=== PATIENT | female | born 1960 | race African-American/Black ===

== ENCOUNTER 2021-05-12 16:37 | Emergency (ER) | payer SELFPAY ==
[2021-05-12] MEDS ORDERED: HYDROcodone/Acetaminophen 7.5/325 mg Tablet ONE (17:45)
== END 2021-05-12 17:56 | disposition home or self-care (01) ==
LOC: ERS 16:37
DX: B02.9 Zoster without complications (principal)
CPT/HCPCS: 99283

== ENCOUNTER 2021-07-03 23:12 | Inpatient (IN) | payer SELFPAY ==
[2021-07-04] MEDS ORDERED: cefTRIAXone\\ROCEPHIN 2 GM VIAL ONE (00:05)
[2021-07-04] MEDS ORDERED: Dexamethasone 10 MG/ML VIAL ONE (00:11)
[2021-07-04 00:15] LABS: ALT (SGPT) 75 U/L (8-55); AST (SGOT) 153 U/L (5-34); Albumin 3.6 g/dL (3.4-4.8); Alkaline Phosphatase 81 U/L (40-110); Anion Gap 24 mmol/L (10-20); BUN (Urea Nitrogen) 28 mg/dL (9.8-20.1); Bilirubin, Total 0.5 mg/dL (0.2-1.2); Calc. Creatinine Clearance 0 mL/min (70-130); Calcium 8.7 mg/dL (7.8-10.44); Carbon Dioxide 16 mmol/L (23-31); Chloride 103 mmol/L (98-107); Globulin 4.3 g/dL (2.4-3.5); Glucose 163 mg/dL (80-115); Potassium 5.2 mmol/L (3.5-5.1); Protein, Total 7.9 g/dL (5.8-8.1); Sodium 138 mmol/L (136-145)
[2021-07-04 00:44] LABS: CKMB 8.4 ng/mL (0-6.6)
[2021-07-04 00:45] LABS: #Lymphocytes 1.2 thou/uL (1.20-3.40); #Neutrophils 9.3 thou/uL (1.40-6.50); %Basophils 0.2 % (0.0-1.0); %Eosinophils 0.2 % (0.0-10.0); %Lymphocytes 10.6 % (21.0-51.0); %Monocytes 8.9 % (0.0-10.0); %Neutrophils 80.1 % (42.0-75.0); Hemoglobin 14.9 g/dL (12.0-16.0); Mean Corpuscular HGB CONC 33.9 g/dL (32.0-36.0); Mean Corpuscular Hemoglobin 29.1 pg (27.0-31.0); Mean Corpuscular Volume 85.6 fL (78.0-98.0); Mean Platelet Volume 10.8 fL (7.4-10.4); Platelet Count 179 thou/uL (130-400); Platelet Morphology Comment Appears Adequate; RBC Distribution Width 14.6 % (11.5-14.5); RBC Morphology Normal; Red Blood Cell (RBC) Count 5.11 mill/uL (4.20-5.40); White Blood Cell (WBC) Count 11.6 thou/uL (4.8-10.8)
[2021-07-04] MEDS ORDERED: Aspirin Chewable 81 MG TAB ONE (01:20)
[2021-07-04] MEDS ORDERED: Azithromycin 500 MG VIAL ONE (01:20)
[2021-07-04] MEDS ORDERED: Enoxaparin Sodium 100 MG/ML SYRINGE ONE (02:23)
[2021-07-04] MEDS ORDERED: Enoxaparin Sodium 40 MG/0.4 ML SYRINGE ONE (02:23)
[2021-07-04 03:17] LABS: Lactic Acid 1.4 mmol/L (0.5-2.2)
[2021-07-04 03:25] LABS: Troponin I 0.271 ng/mL (< 0.028)
[2021-07-04] MEDS ORDERED: Ondansetron PF 4 MG/2 ML Vial IVP PRN (03:26)
[2021-07-04] MEDS ORDERED: Sodium Chloride 0.9% 1,000 ML IV SCH (03:45)
[2021-07-04] MEDS ORDERED: REMDESIVIR 200 MG in Sodium Chloride 0.9% 250 ML 210 ML IV SCH (05:00)
[2021-07-04 06:41] LABS: #Monocytes 0.9 thou/uL (0.11-0.59); #Neutrophils 7.8 thou/uL (1.40-6.50); %Basophils 0.1 % (0.0-1.0); %Eosinophils 0.3 % (0.0-10.0); %Lymphocytes 10.3 % (21.0-51.0); %Monocytes 9.6 % (0.0-10.0); %Neutrophils 79.8 % (42.0-75.0); Hemoglobin 13.7 g/dL (12.0-16.0); Mean Corpuscular HGB CONC 34.4 g/dL (32.0-36.0); Mean Corpuscular Hemoglobin 29.4 pg (27.0-31.0); Mean Corpuscular Volume 85.5 fL (78.0-98.0); Mean Platelet Volume 10.8 fL (7.4-10.4); Platelet Count 171 thou/uL (130-400); RBC Distribution Width 14.4 % (11.5-14.5); Red Blood Cell (RBC) Count 4.66 mill/uL (4.20-5.40); White Blood Cell (WBC) Count 9.7 thou/uL (4.8-10.8)
[2021-07-04 07:08] LABS: ALT (SGPT) 71 U/L (8-55); AST (SGOT) 140 U/L (5-34); Albumin 3.3 g/dL (3.4-4.8); Alkaline Phosphatase 68 U/L (40-110); Anion Gap 14 mmol/L (10-20); BUN (Urea Nitrogen) 29 mg/dL (9.8-20.1); Bilirubin, Total 0.4 mg/dL (0.2-1.2); Calc. Creatinine Clearance 114 mL/min (70-130); Calcium 8.9 mg/dL (7.8-10.44); Carbon Dioxide 23 mmol/L (23-31); Chloride 105 mmol/L (98-107); Globulin 3.9 g/dL (2.4-3.5); Glucose 159 mg/dL (80-115); Potassium 3.8 mmol/L (3.5-5.1); Protein, Total 7.2 g/dL (5.8-8.1); Sodium 138 mmol/L (136-145)
[2021-07-04 07:14] LABS: Troponin I 0.217 ng/mL (< 0.028)
[2021-07-04] MEDS ORDERED: Dexamethasone 10 MG/ML VIAL SLOW IVP SCH ×2 (09:00)
[2021-07-04] MEDS ORDERED: Zinc Sulfate 220 MG CAP PO SCH (09:00)
[2021-07-04] MEDS: Cholecalciferol 1,000 UNITS (25 MCG) TAB PO SCH (09:46)
[2021-07-04] MEDS: Famotidine 20 MG TAB PO SCH ×2 (09:46→21:08)
[2021-07-04] MEDS: Ascorbic Acid 500 mg Chewable Tablet PO SCH (09:46)
[2021-07-04] MEDS ORDERED: Iopamidol-370 76% 500 ML 1 ML ONE (10:14)
[2021-07-04] MEDS ORDERED: Succinylcholine 200 MG/10 ml SYRINGE FS ONE (13:26)
[2021-07-04] MEDS ORDERED: Rocuronium Bromide 10 MG/ML (10ML VIAL) ONE (13:26)
[2021-07-04] MEDS ORDERED: PROPOFOL 200 MG/20 ML VIAL ONE (13:26)
[2021-07-04] MEDS: Albuterol 200 PUFF (6.7GM INHALER) INH SCH ×2 (14:15→18:39)
[2021-07-04] MEDS: Dexamethasone 10 MG/ML VIAL SLOW IVP SCH (21:07)
[2021-07-04] MEDS: Enoxaparin Sodium 40 MG/0.4 ML SYRINGE SC SCH (21:07)
[2021-07-05] MEDS: Albuterol 200 PUFF (6.7GM INHALER) INH SCH ×4 (00:10→20:14)
[2021-07-05 01:32] LABS: Bacteria/HPF 4+ HPF (None Seen); Bilirubin Negative (Negative); Blood, Urine 3+ (Negative); Clarity Extra Turbid (Clear); Glucose, Urine (Dipstick) Normal (Negative); Ketone, Urine Negative (Negative); Leukocyte 250 Leu/uL (Negative); Nitrite Negative (Negative); Protein, Urine (Dipstick) 50 mg/dL (Neg-Trace); RBC/HPF 21-50 HPF (0-3); Specific Gravity, Urine 1.043 (1.002-1.036); Urobilinogen 3 mg/dL (Less than 2); WBC/HPF 21-50 HPF (0-3); pH, Urine 6.5 (5.0-9.0)
[2021-07-05 01:33] LABS: Urine Culture Reflex No No
[2021-07-05 04:22] LABS: ALT (SGPT) 75 U/L (8-55); AST (SGOT) 127 U/L (5-34); Albumin 3.2 g/dL (3.4-4.8); Alkaline Phosphatase 65 U/L (40-110); Anion Gap 14 mmol/L (10-20); BUN (Urea Nitrogen) 29 mg/dL (9.8-20.1); Bilirubin, Total 0.4 mg/dL (0.2-1.2); Calc. Creatinine Clearance 161 mL/min (70-130); Calcium 8.9 mg/dL (7.8-10.44); Carbon Dioxide 21 mmol/L (23-31); Chloride 107 mmol/L (98-107); Globulin 3.8 g/dL (2.4-3.5); Glucose 156 mg/dL (80-115); Potassium 3.6 mmol/L (3.5-5.1); Sodium 138 mmol/L (136-145)
[2021-07-05 04:55] LABS: Hemoglobin 12.9 g/dL (12.0-16.0); Mean Corpuscular HGB CONC 32.1 g/dL (32.0-36.0); Mean Corpuscular Hemoglobin 27.6 pg (27.0-31.0); Mean Platelet Volume 10.6 fL (7.4-10.4); Platelet Count 203 thou/uL (130-400); RBC Distribution Width 14.4 % (11.5-14.5); Red Blood Cell (RBC) Count 4.68 mill/uL (4.20-5.40)
[2021-07-05 04:56] LABS: Band 22 % (5-11); Lymphocytes 3 % (21-51); MDiff Complete? YES; Monocytes 16 % (0-10); Neutrophil 59 % (42-75)
[2021-07-05] MEDS ORDERED: REMDESIVIR 100 MG in Sodium Chloride 0.9% 250 ML 230 ML IV SCH (05:00)
[2021-07-05] MEDS: Cholecalciferol 1,000 UNITS (25 MCG) TAB PO SCH (07:32)
[2021-07-05] MEDS: Zinc Sulfate 220 MG CAP PO SCH (07:32)
[2021-07-05] MEDS: Enoxaparin Sodium 40 MG/0.4 ML SYRINGE SC SCH ×2 (07:32→20:14)
[2021-07-05] MEDS: Ascorbic Acid 500 mg Chewable Tablet PO SCH (07:32)
[2021-07-05] MEDS: Famotidine 20 MG TAB PO SCH ×2 (07:32→20:14)
[2021-07-05] MEDS ORDERED: BARICITINIB 2 MG TAB PO SCH (09:45)
[2021-07-05] MEDS: Dexamethasone 10 MG/ML VIAL SLOW IVP SCH ×2 (10:46→20:14)
[2021-07-05] MEDS: cefTRIAXone\\ROCEPHIN 2 GM in Sodium Chloride 0.9% 100 ML IVPB SCH (20:14)
[2021-07-06] MEDS: Albuterol 200 PUFF (6.7GM INHALER) INH SCH ×4 (00:53→18:39)
[2021-07-06 04:40] LABS: ALT (SGPT) 92 U/L (8-55); AST (SGOT) 120 U/L (5-34); Albumin 3.3 g/dL (3.4-4.8); Alkaline Phosphatase 82 U/L (40-110); Anion Gap 17 mmol/L (10-20); BUN (Urea Nitrogen) 28 mg/dL (9.8-20.1); Bilirubin, Total 0.5 mg/dL (0.2-1.2); Calc. Creatinine Clearance 164 mL/min (70-130); Calcium 8.6 mg/dL (7.8-10.44); Carbon Dioxide 22 mmol/L (23-31); Chloride 108 mmol/L (98-107); Globulin 3.1 g/dL (2.4-3.5); Glucose 160 mg/dL (80-115); Potassium 3.7 mmol/L (3.5-5.1); Protein, Total 6.4 g/dL (5.8-8.1); Sodium 143 mmol/L (136-145)
[2021-07-06 05:56] LABS: Band 25 % (5-11); Hemoglobin 12.8 g/dL (12.0-16.0); Lymphocytes 3 % (21-51); MDiff Complete? YES; Mean Corpuscular Hemoglobin 29.3 pg (27.0-31.0); Mean Corpuscular Volume 86.1 fL (78.0-98.0); Mean Platelet Volume 10.4 fL (7.4-10.4); Metamyelocyte 2 % (0-0); Monocytes 3 % (0-10); Neutrophil 63 % (42-75); Platelet Count 244 thou/uL (130-400); Platelet Morphology Comment Appears Adequate; Polychromasia SLIGHT = 2-3 cells (100X) (0-2/hpf); RBC Distribution Width 14.4 % (11.5-14.5); Reactive Lymphocytes 4 % (0-10); Red Blood Cell (RBC) Count 4.36 mill/uL (4.20-5.40); White Blood Cell (WBC) Count 16.4 thou/uL (4.8-10.8)
[2021-07-06] MEDS: Cholecalciferol 1,000 UNITS (25 MCG) TAB PO SCH (09:07)
[2021-07-06] MEDS: Ascorbic Acid 500 mg Chewable Tablet PO SCH (09:07)
[2021-07-06] MEDS: Dexamethasone 10 MG/ML VIAL SLOW IVP SCH ×2 (09:07→20:17)
[2021-07-06] MEDS: Famotidine 20 MG TAB PO SCH ×2 (09:07→20:17)
[2021-07-06] MEDS: Enoxaparin Sodium 40 MG/0.4 ML SYRINGE SC SCH ×2 (09:08→20:17)
[2021-07-06] MEDS: BARICITINIB 2 MG TAB PO SCH (09:08)
[2021-07-06] MEDS: Zinc Sulfate 220 MG CAP PO SCH (09:08)
[2021-07-06] MEDS: cefTRIAXone\\ROCEPHIN 2 GM in Sodium Chloride 0.9% 100 ML IVPB SCH (20:17)
[2021-07-07] MEDS: Albuterol 200 PUFF (6.7GM INHALER) INH SCH ×4 (00:54→17:00)
[2021-07-07] MEDS: Ascorbic Acid 500 mg Chewable Tablet PO SCH (09:42)
[2021-07-07] MEDS: Cholecalciferol 1,000 UNITS (25 MCG) TAB PO SCH (09:42)
[2021-07-07] MEDS: BARICITINIB 2 MG TAB PO SCH (09:42)
[2021-07-07] MEDS: Zinc Sulfate 220 MG CAP PO SCH (09:42)
[2021-07-07] MEDS: Famotidine 20 MG TAB PO SCH ×2 (09:42→20:13)
[2021-07-07] MEDS: Enoxaparin Sodium 40 MG/0.4 ML SYRINGE SC SCH ×2 (09:43→20:13)
[2021-07-07] MEDS: Dexamethasone 10 MG/ML VIAL SLOW IVP SCH ×2 (09:43→20:12)
[2021-07-07] MEDS: cefTRIAXone\\ROCEPHIN 2 GM in Sodium Chloride 0.9% 100 ML IVPB SCH (20:13)
[2021-07-08] MEDS: Albuterol 200 PUFF (6.7GM INHALER) INH SCH ×5 (02:09→23:51)
[2021-07-08] MEDS: Enoxaparin Sodium 40 MG/0.4 ML SYRINGE SC SCH ×2 (08:53→20:55)
[2021-07-08] MEDS: Cholecalciferol 1,000 UNITS (25 MCG) TAB PO SCH (08:53)
[2021-07-08] MEDS: Famotidine 20 MG TAB PO SCH ×2 (08:54→20:57)
[2021-07-08] MEDS: Ascorbic Acid 500 mg Chewable Tablet PO SCH (08:54)
[2021-07-08] MEDS: Zinc Sulfate 220 MG CAP PO SCH (08:54)
[2021-07-08] MEDS: BARICITINIB 2 MG TAB PO SCH (08:55)
[2021-07-08] MEDS: Dexamethasone 10 MG/ML VIAL SLOW IVP SCH ×2 (08:55→20:56)
[2021-07-08] MEDS: cefTRIAXone\\ROCEPHIN 2 GM in Sodium Chloride 0.9% 100 ML IVPB SCH (20:54)
[2021-07-08] MEDS: Acetaminophen 325 MG TAB PO PRN (20:56)
[2021-07-09 00:32] LABS: Actual Bicarbonate (HCO3a) 20.3 mEq/L (22-28); Base Excess (BEa) -1.2 mEq/L (-2.0 to +3.0); CO2 Tension 26.2 mmHg (35.0-45.0); Carboxyhemoglobin (COHb) 1.2 gm% (0.0-3.0); Hemoglobin (Hb) 14.5 g/dL (12.0-16.0); Potassium - ABG Lab 3.68 mmol/L (3.70-5.30); pH, Arterial 7.51 (7.35-7.45)
[2021-07-09 00:33] LABS: O2 Tension (PaO2), arterial 55.8 mmHg (> 80.0)
[2021-07-09 00:34] LABS: Puncture Site LRA
[2021-07-09] MEDS: Famotidine 20 MG TAB PO SCH ×2 (08:07→20:03)
[2021-07-09] MEDS: Ascorbic Acid 500 mg Chewable Tablet PO SCH (08:07)
[2021-07-09] MEDS: Albuterol 200 PUFF (6.7GM INHALER) INH SCH ×3 (08:07→19:10)
[2021-07-09] MEDS: Cholecalciferol 1,000 UNITS (25 MCG) TAB PO SCH (08:08)
[2021-07-09] MEDS: Zinc Sulfate 220 MG CAP PO SCH (08:08)
[2021-07-09] MEDS: Enoxaparin Sodium 40 MG/0.4 ML SYRINGE SC SCH ×2 (08:08→20:03)
[2021-07-09] MEDS: Dexamethasone 10 MG/ML VIAL SLOW IVP SCH ×2 (09:51→21:00)
[2021-07-09] MEDS: BARICITINIB 2 MG TAB PO SCH (09:51)
[2021-07-09] MEDS ORDERED: Propofol 1,000 MG/100 ML VIAL IV ONE (10:03)
[2021-07-09] MEDS ORDERED: Ventilator Sedation Protocol 1 EACH FS ONE (10:04)
[2021-07-09] MEDS ORDERED: Fentanyl BOLUS 250 ML IVPB PRN (10:15)
[2021-07-09] MEDS ORDERED: Propofol BOLUS 1,000 MG/100 ML VIAL IV PRN (10:15)
[2021-07-09] MEDS ORDERED: DISCONTINUE PREVIOUS NARCOTIC PAIN MEDICATIONS AND BENZODIAZEPINES FS SCH (10:15)
[2021-07-09] MEDS ORDERED: Fentanyl CADD 100 ML ONE (10:19)
[2021-07-09] MEDS: Propofol 1,000 MG/100 ML VIAL IV PRN ×3 (10:40→17:43)
[2021-07-09] MEDS: Fentanyl CADD 100 ML IV SCH (11:00)
[2021-07-09] MEDS: Lorazepam 2 MG/ML VIAL SLOW IVP PRN ×4 (11:32→17:43)
[2021-07-09 12:46] LABS: Base Excess (BEa) -4.2 mEq/L (-2.0 to +3.0); Calcium, Ionized (arterial) 1.19 mmol/L (1.12-1.30); Carboxyhemoglobin (COHb) 0.5 gm% (0.0-3.0); Hemoglobin (Hb) 14.2 g/dL (12.0-16.0); O2 Tension (PaO2), arterial 67.5 mmHg (> 80.0); Potassium - ABG Lab 3.76 mmol/L (3.70-5.30); pH, Arterial 7.39 (7.35-7.45)
[2021-07-09 12:47] LABS: Puncture Site LR
[2021-07-09] MEDS: Vecuronium 10 MG VIAL IVP PRN ×2 (15:35→18:03)
[2021-07-09] MEDS: Lactated Ringer's 1,000 ML IV SCH (17:44)
[2021-07-09] MEDS: cefTRIAXone\\ROCEPHIN 2 GM in Sodium Chloride 0.9% 100 ML IVPB SCH (20:03)
[2021-07-10] MEDS: Propofol 1,000 MG/100 ML VIAL IV PRN ×8 (00:47→23:52)
[2021-07-10] MEDS: Vecuronium 10 MG VIAL IVP PRN ×7 (02:41→19:21)
[2021-07-10] MEDS: Lorazepam 2 MG/ML VIAL SLOW IVP PRN ×6 (03:00→19:21)
[2021-07-10] MEDS: Fentanyl CADD 100 ML IV SCH (04:15)
[2021-07-10 07:21] LABS: Anion Gap 19 mmol/L (10-20); BUN (Urea Nitrogen) 21 mg/dL (9.8-20.1); Calc. Creatinine Clearance 158 mL/min (70-130); Calcium 8.5 mg/dL (7.8-10.44); Carbon Dioxide 16 mmol/L (23-31); Chloride 111 mmol/L (98-107); Glucose 141 mg/dL (80-115); Potassium 4.3 mmol/L (3.5-5.1); Sodium 142 mmol/L (136-145)
[2021-07-10 07:30] LABS: Hemoglobin 15.1 g/dL (12.0-16.0); Mean Corpuscular Hemoglobin 28.5 pg (27.0-31.0); Mean Corpuscular Volume 86.4 fL (78.0-98.0); Mean Platelet Volume 10.3 fL (7.4-10.4); Platelet Count 140 thou/uL (130-400); RBC Distribution Width 14.9 % (11.5-14.5); Red Blood Cell (RBC) Count 5.28 mill/uL (4.20-5.40); White Blood Cell (WBC) Count 16.4 thou/uL (4.8-10.8)
[2021-07-10] MEDS: Famotidine 20 MG TAB PO SCH ×2 (07:34→20:54)
[2021-07-10] MEDS: Cholecalciferol 1,000 UNITS (25 MCG) TAB PO SCH (07:34)
[2021-07-10] MEDS: Zinc Sulfate 220 MG CAP PO SCH (07:34)
[2021-07-10] MEDS: Ascorbic Acid 500 mg Chewable Tablet PO SCH (07:34)
[2021-07-10] MEDS: Lactated Ringer's 1,000 ML IV SCH ×2 (07:34→18:34)
[2021-07-10] MEDS: Enoxaparin Sodium 40 MG/0.4 ML SYRINGE SC SCH ×2 (07:36→20:53)
[2021-07-10] MEDS: Albuterol 200 PUFF (6.7GM INHALER) INH SCH ×4 (07:45→18:23)
[2021-07-10 08:04] LABS: Actual Bicarbonate (HCO3a) 20.1 mEq/L (22-28); Base Excess (BEa) -2.3 mEq/L (-2.0 to +3.0); CO2 Tension 28.8 mmHg (35.0-45.0); Calcium, Ionized (arterial) 1.17 mmol/L (1.12-1.30); Carboxyhemoglobin (COHb) 0.5 gm% (0.0-3.0); Hemoglobin (Hb) 14.5 g/dL (12.0-16.0); Potassium - ABG Lab 3.59 mmol/L (3.70-5.30); pH, Arterial 7.46 (7.35-7.45)
[2021-07-10 08:05] LABS: O2 Tension (PaO2), arterial 56.4 mmHg (> 80.0); Puncture Site RRA
[2021-07-10 08:17] LABS: #Eosinphils 0.2 thou/uL (0.0-0.7); #Lymphocytes 0.9 thou/uL (1.20-3.40); #Monocytes 0.8 thou/uL (0.11-0.59); #Neutrophils 14.5 thou/uL (1.40-6.50); %Eosinophils 0.9 % (0.0-10.0); %Lymphocytes 5.5 % (21.0-51.0); %Monocytes 5.1 % (0.0-10.0); %Neutrophils 88.5 % (42.0-75.0); Band 5 % (5-11); Lymphocytes 6 % (21-51); MDiff Complete? YES; Metamyelocyte 2 % (0-0); Monocytes 3 % (0-10); Myelocyte 1 % (0-0); Neutrophil 83 % (42-75); Nucleated RBC 1 % (0); Platelet Morphology Comment Appears Adequate; Polychromasia SLIGHT = 2-3 cells (100X) (0-2/hpf)
[2021-07-10] MEDS: BARICITINIB 2 MG TAB PO SCH (09:32)
[2021-07-10] MEDS: Dexamethasone 10 MG/ML VIAL SLOW IVP SCH ×2 (09:33→20:54)
[2021-07-10 13:47] LABS: ALT (SGPT) 88 U/L (8-55); AST (SGOT) 36 U/L (5-34); Albumin 2.8 g/dL (3.4-4.8); Alkaline Phosphatase 88 U/L (40-110); Bilirubin, Direct 0.5 mg/dL (0.1-0.3); Bilirubin, Total 0.8 mg/dL (0.2-1.2); Protein, Total 6.2 g/dL (5.8-8.1)
[2021-07-10] MEDS ORDERED: Fentanyl CADD 100 ML ONE (19:12)
[2021-07-10] MEDS: cefTRIAXone\\ROCEPHIN 2 GM in Sodium Chloride 0.9% 100 ML IVPB SCH (20:00)
[2021-07-11] MEDS: Albuterol 200 PUFF (6.7GM INHALER) INH SCH ×5 (00:17→23:07)
[2021-07-11] MEDS: Lorazepam 2 MG/ML VIAL SLOW IVP PRN (00:26)
[2021-07-11] MEDS: Vecuronium 10 MG VIAL IVP PRN ×2 (00:26→14:12)
[2021-07-11] MEDS: Lactated Ringer's 1,000 ML IV SCH ×2 (02:26→15:26)
[2021-07-11] MEDS: Propofol 1,000 MG/100 ML VIAL IV PRN ×7 (03:11→23:40)
[2021-07-11 05:03] LABS: Anion Gap 14 mmol/L (10-20); BUN (Urea Nitrogen) 12 mg/dL (9.8-20.1); Calc. Creatinine Clearance 202 mL/min (70-130); Calcium 8.7 mg/dL (7.8-10.44); Carbon Dioxide 19 mmol/L (23-31); Chloride 108 mmol/L (98-107); Glucose 173 mg/dL (80-115); Sodium 137 mmol/L (136-145)
[2021-07-11 05:35] LABS: #Lymphocytes 0.4 thou/uL (1.20-3.40); #Monocytes 0.3 thou/uL (0.11-0.59); #Neutrophils 12.7 thou/uL (1.40-6.50); %Eosinophils 0.3 % (0.0-10.0); %Lymphocytes 3.1 % (21.0-51.0); %Monocytes 2.5 % (0.0-10.0); %Neutrophils 94.1 % (42.0-75.0); Hemoglobin 13.3 g/dL (12.0-16.0); Mean Corpuscular HGB CONC 32.7 g/dL (32.0-36.0); Mean Corpuscular Hemoglobin 28.4 pg (27.0-31.0); Mean Corpuscular Volume 86.9 fL (78.0-98.0); Mean Platelet Volume 10.1 fL (7.4-10.4); Platelet Count 125 thou/uL (130-400); Platelet Morphology Comment Appears Decreased; RBC Distribution Width 14.7 % (11.5-14.5); White Blood Cell (WBC) Count 13.5 thou/uL (4.8-10.8)
[2021-07-11 07:32] LABS: Actual Bicarbonate (HCO3a) 23.5 mEq/L (22-28); Base Excess (BEa) -0.6 mEq/L (-2.0 to +3.0); CO2 Tension 37.1 mmHg (35.0-45.0); Calcium, Ionized (arterial) 1.23 mmol/L (1.12-1.30); Carboxyhemoglobin (COHb) 0.3 gm% (0.0-3.0); Hemoglobin (Hb) 13.7 g/dL (12.0-16.0); O2 Tension (PaO2), arterial 71.8 mmHg (> 80.0); Potassium - ABG Lab 3.91 mmol/L (3.70-5.30); pH, Arterial 7.42 (7.35-7.45)
[2021-07-11 07:33] LABS: ALV-art Gradient 281.105 mmHg (0-20); Puncture Site RRA
[2021-07-11] MEDS: Dexamethasone 10 MG/ML VIAL SLOW IVP SCH ×2 (09:23→21:02)
[2021-07-11] MEDS: Enoxaparin Sodium 40 MG/0.4 ML SYRINGE SC SCH ×2 (09:23→21:02)
[2021-07-11] MEDS: Cholecalciferol 1,000 UNITS (25 MCG) TAB PO SCH (10:31)
[2021-07-11] MEDS: Ascorbic Acid 500 mg Chewable Tablet PO SCH (10:31)
[2021-07-11] MEDS: Famotidine 20 MG TAB PO SCH ×2 (10:31→21:03)
[2021-07-11] MEDS: BARICITINIB 2 MG TAB PO SCH (10:31)
[2021-07-11] MEDS: Zinc Sulfate 220 MG CAP PO SCH (10:32)
[2021-07-11] MEDS ORDERED: Fentanyl CADD 100 ML ONE (11:58)
[2021-07-11] MEDS: Fentanyl CADD 100 ML IV SCH (12:02)
[2021-07-12] MEDS: Lactated Ringer's 1,000 ML IV SCH ×2 (03:15→20:20)
[2021-07-12] MEDS: Propofol 1,000 MG/100 ML VIAL IV PRN ×7 (03:15→21:40)
[2021-07-12] MEDS ORDERED: Fentanyl CADD 100 ML ONE ×2 (03:40→18:33)
[2021-07-12 06:50] LABS: Anion Gap 15 mmol/L (10-20); BUN (Urea Nitrogen) 16 mg/dL (9.8-20.1); Calc. Creatinine Clearance 199 mL/min (70-130); Calcium 8.8 mg/dL (7.8-10.44); Carbon Dioxide 18 mmol/L (23-31); Chloride 108 mmol/L (98-107); Glucose 167 mg/dL (80-115); Potassium 5.7 mmol/L (3.5-5.1); Sodium 135 mmol/L (136-145)
[2021-07-12 06:56] LABS: Hemoglobin 14.5 g/dL (12.0-16.0); Mean Corpuscular HGB CONC 35.2 g/dL (32.0-36.0); Mean Corpuscular Hemoglobin 30.5 pg (27.0-31.0); Mean Corpuscular Volume 86.7 fL (78.0-98.0); Mean Platelet Volume 10.7 fL (7.4-10.4); Platelet Count 110 thou/uL (130-400); RBC Distribution Width 14.6 % (11.5-14.5); Red Blood Cell (RBC) Count 4.75 mill/uL (4.20-5.40); White Blood Cell (WBC) Count 19.5 thou/uL (4.8-10.8)
[2021-07-12 06:57] LABS: Band 7 % (5-11); MDiff Complete? YES; Monocytes 20 % (0-10); Neutrophil 73 % (42-75); Platelet Morphology Comment Appears Decreased; RBC Morphology Normal
[2021-07-12] MEDS: Albuterol 200 PUFF (6.7GM INHALER) INH SCH ×3 (08:16→19:34)
[2021-07-12 08:17] LABS: Actual Bicarbonate (HCO3a) 25.7 mEq/L (22-28); Base Excess (BEa) 1.3 mEq/L (-2.0 to +3.0); CO2 Tension 39.9 mmHg (35.0-45.0); Hemoglobin (Hb) 13.5 g/dL (12.0-16.0); O2 Tension (PaO2), arterial 44.4 mmHg (> 80.0); pH, Arterial 7.43 (7.35-7.45)
[2021-07-12 08:18] LABS: ALV-art Gradient 333.525 mmHg (0-20); Calcium, Ionized (arterial) 1.21 mmol/L (1.12-1.30); Carboxyhemoglobin (COHb) 0.6 gm% (0.0-3.0); Potassium - ABG Lab 3.97 mmol/L (3.70-5.30); Puncture Site RRA
[2021-07-12] MEDS: Dexamethasone 10 MG/ML VIAL SLOW IVP SCH ×2 (08:51→21:40)
[2021-07-12] MEDS: Enoxaparin Sodium 40 MG/0.4 ML SYRINGE SC SCH ×2 (08:51→21:41)
[2021-07-12] MEDS: BARICITINIB 2 MG TAB PO SCH (10:24)
[2021-07-12] MEDS: Cholecalciferol 1,000 UNITS (25 MCG) TAB PO SCH (10:24)
[2021-07-12] MEDS: Ascorbic Acid 500 mg Chewable Tablet PO SCH (10:24)
[2021-07-12] MEDS: Famotidine 20 MG TAB PO SCH ×2 (10:24→21:41)
[2021-07-12] MEDS: Zinc Sulfate 220 MG CAP PO SCH (10:25)
[2021-07-12] MEDS: Vecuronium 10 MG VIAL IVP PRN (11:39)
[2021-07-12] MEDS: Fentanyl CADD 100 ML IV SCH (18:40)
[2021-07-13] MEDS: Albuterol 200 PUFF (6.7GM INHALER) INH SCH ×4 (00:48→18:52)
[2021-07-13] MEDS: Propofol 1,000 MG/100 ML VIAL IV PRN ×6 (03:20→20:15)
[2021-07-13] MEDS: Vecuronium 10 MG VIAL IVP PRN ×2 (07:22→08:33)
[2021-07-13] MEDS: Morphine 2 MG/ML VIAL SLOW IVP PRN (07:53)
[2021-07-13] MEDS: Lorazepam 2 MG/ML VIAL SLOW IVP PRN ×2 (07:54→20:16)
[2021-07-13 08:07] LABS: Hemoglobin 13.7 g/dL (12.0-16.0); Mean Corpuscular HGB CONC 30.9 g/dL (32.0-36.0); Mean Corpuscular Hemoglobin 26.8 pg (27.0-31.0); Mean Corpuscular Volume 86.8 fL (78.0-98.0); Mean Platelet Volume 11.6 fL (7.4-10.4); Platelet Count 144 thou/uL (130-400); RBC Distribution Width 14.8 % (11.5-14.5); Red Blood Cell (RBC) Count 5.11 mill/uL (4.20-5.40); White Blood Cell (WBC) Count 19.6 thou/uL (4.8-10.8)
[2021-07-13 08:24] LABS: Actual Bicarbonate (HCO3a) 24.8 mEq/L (22-28); Base Excess (BEa) -2.2 mEq/L (-2.0 to +3.0); CO2 Tension 51.7 mmHg (35.0-45.0); Calcium, Ionized (arterial) 1.21 mmol/L (1.12-1.30); Carboxyhemoglobin (COHb) 0.8 gm% (0.0-3.0); Hemoglobin (Hb) 13.9 g/dL (12.0-16.0); Potassium - ABG Lab 3.63 mmol/L (3.70-5.30)
[2021-07-13 08:24] LABS: ALT (SGPT) 49 U/L (8-55); AST (SGOT) 32 U/L (5-34); Albumin 2.7 g/dL (3.4-4.8); Alkaline Phosphatase 63 U/L (40-110); Anion Gap 14 mmol/L (10-20); BUN (Urea Nitrogen) 19 mg/dL (9.8-20.1); Bilirubin, Direct 0.1 mg/dL (0.1-0.3); Bilirubin, Total 0.5 mg/dL (0.2-1.2); Calc. Creatinine Clearance 195 mL/min (70-130); Calcium 8.7 mg/dL (7.8-10.44); Carbon Dioxide 22 mmol/L (23-31); Chloride 104 mmol/L (98-107); Glucose 196 mg/dL (80-115); Potassium 4.7 mmol/L (3.5-5.1); Protein, Total 6.6 g/dL (5.8-8.1); Sodium 135 mmol/L (136-145)
[2021-07-13 08:25] LABS: O2 Tension (PaO2), arterial 56.4 mmHg (> 80.0); Puncture Site LRA
[2021-07-13 08:26] LABS: ALV-art Gradient 306.775 mmHg (0-20)
[2021-07-13] MEDS: Dexamethasone 10 MG/ML VIAL SLOW IVP SCH ×2 (08:33→20:16)
[2021-07-13] MEDS: Enoxaparin Sodium 40 MG/0.4 ML SYRINGE SC SCH ×2 (08:33→20:16)
[2021-07-13] MEDS: Zinc Sulfate 220 MG CAP PO SCH (08:33)
[2021-07-13] MEDS: Ascorbic Acid 500 mg Chewable Tablet PO SCH (08:33)
[2021-07-13] MEDS: BARICITINIB 2 MG TAB PO SCH (08:33)
[2021-07-13] MEDS: Cholecalciferol 1,000 UNITS (25 MCG) TAB PO SCH (08:33)
[2021-07-13] MEDS: Famotidine 20 MG TAB PO SCH ×2 (08:36→20:16)
[2021-07-13] MEDS: Lactated Ringer's 1,000 ML IV SCH (08:37)
[2021-07-13] MEDS ORDERED: Fentanyl CADD 100 ML ONE (09:22)
[2021-07-13] MEDS: Fentanyl CADD 100 ML IV SCH (09:25)
[2021-07-13 11:42] LABS: Anisocytosis SLIGHT = 6-15 cells (100X) (0-5/hpf); Band 2 % (5-11); Lymphocytes 1 % (21-51); MDiff Complete? YES; Monocytes 15 % (0-10); Neutrophil 82 % (42-75); Platelet Morphology Comment Appears Adequate; Vacuoles SLIGHT
[2021-07-13] MEDS: Rocuronium Bromide 50 MG/5 ML VIAL IVP PRN (15:47)
[2021-07-14] MEDS: Lactated Ringer's 1,000 ML IV SCH ×2 (00:11→09:47)
[2021-07-14] MEDS: Propofol 1,000 MG/100 ML VIAL IV PRN ×9 (00:11→23:12)
[2021-07-14] MEDS ORDERED: Fentanyl CADD 100 ML ONE ×2 (00:57→17:05)
[2021-07-14] MEDS: Fentanyl CADD 100 ML IV SCH ×2 (01:04→17:09)
[2021-07-14] MEDS: Albuterol 200 PUFF (6.7GM INHALER) INH SCH ×5 (02:08→23:51)
[2021-07-14] MEDS: Lorazepam 2 MG/ML VIAL SLOW IVP PRN ×2 (02:47→21:46)
[2021-07-14 04:24] LABS: Mean Corpuscular HGB CONC 33.1 g/dL (32.0-36.0); Mean Corpuscular Hemoglobin 28.7 pg (27.0-31.0); Mean Corpuscular Volume 86.5 fL (78.0-98.0); Mean Platelet Volume 11.5 fL (7.4-10.4); Platelet Count 116 thou/uL (130-400); RBC Distribution Width 14.5 % (11.5-14.5); Red Blood Cell (RBC) Count 4.19 mill/uL (4.20-5.40); White Blood Cell (WBC) Count 22.5 thou/uL (4.8-10.8)
[2021-07-14 04:25] LABS: Band 10 % (5-11); Lymphocytes 5 % (21-51); MDiff Complete? YES; Monocytes 8 % (0-10); Neutrophil 77 % (42-75); Platelet Morphology Comment Appears Decreased; RBC Morphology Normal
[2021-07-14 04:29] LABS: Anion Gap 10 mmol/L (10-20); BUN (Urea Nitrogen) 19 mg/dL (9.8-20.1); Calc. Creatinine Clearance 214 mL/min (70-130); Calcium 8.4 mg/dL (7.8-10.44); Carbon Dioxide 26 mmol/L (23-31); Chloride 104 mmol/L (98-107); Glucose 183 mg/dL (80-115); Potassium 4.2 mmol/L (3.5-5.1); Sodium 136 mmol/L (136-145)
[2021-07-14 07:47] LABS: Actual Bicarbonate (HCO3a) 28.3 mEq/L (22-28); Base Excess (BEa) 4.1 mEq/L (-2.0 to +3.0); CO2 Tension 41.2 mmHg (35.0-45.0); Calcium, Ionized (arterial) 1.17 mmol/L (1.12-1.30); Carboxyhemoglobin (COHb) 0.7 gm% (0.0-3.0); Hemoglobin (Hb) 12.1 g/dL (12.0-16.0); Potassium - ABG Lab 4.04 mmol/L (3.70-5.30); pH, Arterial 7.46 (7.35-7.45)
[2021-07-14 08:12] LABS: O2 Tension (PaO2), arterial 43.6 mmHg (> 80.0); Puncture Site RRA
[2021-07-14] MEDS: Dexamethasone 10 MG/ML VIAL SLOW IVP SCH ×2 (08:50→21:03)
[2021-07-14] MEDS: BARICITINIB 2 MG TAB PO SCH (08:50)
[2021-07-14] MEDS: Enoxaparin Sodium 40 MG/0.4 ML SYRINGE SC SCH ×2 (08:50→21:03)
[2021-07-14] MEDS: Ascorbic Acid 500 mg Chewable Tablet PO SCH (08:50)
[2021-07-14] MEDS: Cholecalciferol 1,000 UNITS (25 MCG) TAB PO SCH (08:50)
[2021-07-14] MEDS: Zinc Sulfate 220 MG CAP PO SCH (08:50)
[2021-07-14] MEDS: Famotidine 20 MG TAB PO SCH ×2 (08:50→21:03)
[2021-07-15] MEDS: Lorazepam 2 MG/ML VIAL SLOW IVP PRN ×3 (01:57→12:27)
[2021-07-15] MEDS: Propofol 1,000 MG/100 ML VIAL IV PRN ×8 (01:59→22:15)
[2021-07-15 04:26] LABS: Anion Gap 11 mmol/L (10-20); BUN (Urea Nitrogen) 22 mg/dL (9.8-20.1); Calc. Creatinine Clearance 208 mL/min (70-130); Calcium 8.6 mg/dL (7.8-10.44); Carbon Dioxide 28 mmol/L (23-31); Chloride 103 mmol/L (98-107); Glucose 197 mg/dL (80-115); Potassium 4.5 mmol/L (3.5-5.1); Sodium 137 mmol/L (136-145)
[2021-07-15 05:09] LABS: Hemoglobin 11.5 g/dL (12.0-16.0); Mean Corpuscular Hemoglobin 27.9 pg (27.0-31.0); Mean Corpuscular Volume 87.4 fL (78.0-98.0); Mean Platelet Volume 11.6 fL (7.4-10.4); Platelet Count 121 thou/uL (130-400); RBC Distribution Width 14.7 % (11.5-14.5); Red Blood Cell (RBC) Count 4.11 mill/uL (4.20-5.40); White Blood Cell (WBC) Count 17.5 thou/uL (4.8-10.8)
[2021-07-15 05:10] LABS: Band 1 % (5-11); Eosinophils 1 % (0-10); Lymphocytes 7 % (21-51); MDiff Complete? YES; Monocytes 2 % (0-10); Neutrophil 89 % (42-75); Platelet Morphology Comment Appears Decreased; RBC Morphology Normal
[2021-07-15] MEDS ORDERED: Fentanyl CADD 100 ML ONE ×2 (05:35→19:28)
[2021-07-15] MEDS: Fentanyl CADD 100 ML IV SCH ×2 (05:39→19:32)
[2021-07-15] MEDS: Albuterol 200 PUFF (6.7GM INHALER) INH SCH ×3 (07:23→18:41)
[2021-07-15 07:24] LABS: Actual Bicarbonate (HCO3a) 29.1 mEq/L (22-28); Base Excess (BEa) 4.8 mEq/L (-2.0 to +3.0); CO2 Tension 41.7 mmHg (35.0-45.0); Calcium, Ionized (arterial) 1.15 mmol/L (1.12-1.30); Carboxyhemoglobin (COHb) 0.9 gm% (0.0-3.0); Hemoglobin (Hb) 12.5 g/dL (12.0-16.0); Potassium - ABG Lab 4.21 mmol/L (3.70-5.30); pH, Arterial 7.46 (7.35-7.45)
[2021-07-15 07:25] LABS: ALV-art Gradient 404.275 mmHg (0-20); O2 Tension (PaO2), arterial 42.7 mmHg (> 80.0); Puncture Site RRA
[2021-07-15] MEDS: Ascorbic Acid 500 mg Chewable Tablet PO SCH (08:59)
[2021-07-15] MEDS: Famotidine 20 MG TAB PO SCH ×2 (08:59→21:25)
[2021-07-15] MEDS: Cholecalciferol 1,000 UNITS (25 MCG) TAB PO SCH (08:59)
[2021-07-15] MEDS: Dexamethasone 10 MG/ML VIAL SLOW IVP SCH ×2 (08:59→21:25)
[2021-07-15] MEDS: Enoxaparin Sodium 40 MG/0.4 ML SYRINGE SC SCH ×2 (08:59→21:25)
[2021-07-15] MEDS: BARICITINIB 2 MG TAB PO SCH (08:59)
[2021-07-15] MEDS ORDERED: Cefepime 1 GM in Sodium Chloride 0.9% 100 ML IVPB SCH (09:00)
[2021-07-15] MEDS: Zinc Sulfate 220 MG CAP PO SCH (09:00)
[2021-07-15] MEDS: Rocuronium Bromide 50 MG/5 ML VIAL IVP PRN ×2 (10:35→12:27)
[2021-07-15] MEDS ORDERED: Furosemide 40 MG/4 ML VIAL SLOW IVP SCH (12:15)
[2021-07-15] MEDS: Cefepime 2 GM in Sodium Chloride 0.9% 100 ML IVPB SCH (16:57)
[2021-07-16] MEDS: Albuterol 200 PUFF (6.7GM INHALER) INH SCH ×4 (00:04→18:39)
[2021-07-16] MEDS: Propofol 1,000 MG/100 ML VIAL IV PRN ×8 (00:56→23:44)
[2021-07-16] MEDS: Lorazepam 2 MG/ML VIAL SLOW IVP PRN (00:56)
[2021-07-16] MEDS: Cefepime 2 GM in Sodium Chloride 0.9% 100 ML IVPB SCH ×3 (00:56→16:43)
[2021-07-16 04:42] LABS: Anion Gap 12 mmol/L (10-20); BUN (Urea Nitrogen) 21 mg/dL (9.8-20.1); Calc. Creatinine Clearance 209 mL/min (70-130); Calcium 8.5 mg/dL (7.8-10.44); Carbon Dioxide 25 mmol/L (23-31); Chloride 103 mmol/L (98-107); Glucose 252 mg/dL (80-115); Potassium 4.8 mmol/L (3.5-5.1); Sodium 135 mmol/L (136-145)
[2021-07-16 06:43] LABS: Hemoglobin 11.6 g/dL (12.0-16.0); Mean Corpuscular HGB CONC 33.4 g/dL (32.0-36.0); Mean Corpuscular Hemoglobin 29.4 pg (27.0-31.0); Mean Corpuscular Volume 87.9 fL (78.0-98.0); Platelet Count 119 thou/uL (130-400); RBC Distribution Width 15.3 % (11.5-14.5); Red Blood Cell (RBC) Count 3.94 mill/uL (4.20-5.40); White Blood Cell (WBC) Count 21.1 thou/uL (4.8-10.8)
[2021-07-16 07:33] LABS: Band 8 % (5-11); Lymphocytes 8 % (21-51); MDiff Complete? YES; Monocytes 5 % (0-10); Neutrophil 78 % (42-75); Platelet Morphology Comment Appears Decreased; RBC Morphology Normal; Reactive Lymphocytes 1 % (0-10)
[2021-07-16] MEDS ORDERED: Dextrose 50% Abboject 50 ML SYRINGE SLOW IVP PRN (08:29)
[2021-07-16] MEDS ORDERED: Dextrose 5% in Water 1,000 ML IV PRN (08:29)
[2021-07-16 08:34] LABS: Actual Bicarbonate (HCO3a) 32.9 mEq/L (22-28); Base Excess (BEa) 6.9 mEq/L (-2.0 to +3.0); CO2 Tension 53.1 mmHg (35.0-45.0); Calcium, Ionized (arterial) 1.19 mmol/L (1.12-1.30); Carboxyhemoglobin (COHb) 0.8 gm% (0.0-3.0); Hemoglobin (Hb) 12.1 g/dL (12.0-16.0); Potassium - ABG Lab 4.27 mmol/L (3.70-5.30); pH, Arterial 7.41 (7.35-7.45)
[2021-07-16 08:36] LABS: ALV-art Gradient 519.125 mmHg (0-20); O2 Tension (PaO2), arterial 56.2 mmHg (> 80.0); Puncture Site RRA
[2021-07-16] MEDS ORDERED: Fentanyl CADD 100 ML ONE ×2 (08:44→22:28)
[2021-07-16] MEDS: Fentanyl CADD 100 ML IV SCH ×2 (08:49→22:30)
[2021-07-16] MEDS: BARICITINIB 2 MG TAB PO SCH (08:53)
[2021-07-16] MEDS: Ascorbic Acid 500 mg Chewable Tablet PO SCH (08:53)
[2021-07-16] MEDS: Famotidine 20 MG TAB PO SCH ×2 (08:54→21:04)
[2021-07-16] MEDS: Dexamethasone 10 MG/ML VIAL SLOW IVP SCH ×2 (08:54→21:04)
[2021-07-16] MEDS: Enoxaparin Sodium 40 MG/0.4 ML SYRINGE SC SCH ×2 (08:54→21:04)
[2021-07-16] MEDS: Furosemide 40 MG/4 ML VIAL SLOW IVP SCH (08:55)
[2021-07-16] MEDS: Cholecalciferol 1,000 UNITS (25 MCG) TAB PO SCH (08:55)
[2021-07-16] MEDS: Zinc Sulfate 220 MG CAP PO SCH (08:55)
[2021-07-16] MEDS: HumaLOG 300 UNITS/3 ML VIAL SC PRN ×2 (12:29→17:56)
[2021-07-17] MEDS: HumaLOG 300 UNITS/3 ML VIAL SC PRN ×5 (00:06→21:53)
[2021-07-17] MEDS: Albuterol 200 PUFF (6.7GM INHALER) INH SCH ×4 (01:46→20:46)
[2021-07-17] MEDS: Cefepime 2 GM in Sodium Chloride 0.9% 100 ML IVPB SCH ×3 (01:57→16:01)
[2021-07-17] MEDS: Propofol 1,000 MG/100 ML VIAL IV PRN ×9 (02:55→23:43)
[2021-07-17 04:16] LABS: Anion Gap 12 mmol/L (10-20); BUN (Urea Nitrogen) 23 mg/dL (9.8-20.1); Calc. Creatinine Clearance 219 mL/min (70-130); Calcium 9.1 mg/dL (7.8-10.44); Carbon Dioxide 29 mmol/L (23-31); Chloride 100 mmol/L (98-107); Glucose 235 mg/dL (80-115); Potassium 4.5 mmol/L (3.5-5.1); Sodium 136 mmol/L (136-145)
[2021-07-17 05:14] LABS: Band 12 % (5-11); Hemoglobin 11.7 g/dL (12.0-16.0); Hypochromia SLIGHT = 6-15 cells (100X) (0-5/hpf); Lymphocytes 4 % (21-51); MDiff Complete? YES; Mean Corpuscular HGB CONC 31.9 g/dL (32.0-36.0); Mean Corpuscular Hemoglobin 28.4 pg (27.0-31.0); Mean Corpuscular Volume 88.8 fL (78.0-98.0); Mean Platelet Volume 11.6 fL (7.4-10.4); Monocytes 6 % (0-10); Neutrophil 78 % (42-75); Platelet Count 134 thou/uL (130-400); Platelet Morphology Comment Appears Adequate; RBC Distribution Width 15.6 % (11.5-14.5); Red Blood Cell (RBC) Count 4.13 mill/uL (4.20-5.40); White Blood Cell (WBC) Count 15.4 thou/uL (4.8-10.8)
[2021-07-17 07:48] LABS: Actual Bicarbonate (HCO3a) 31.6 mEq/L (22-28); Base Excess (BEa) 7.2 mEq/L (-2.0 to +3.0); CO2 Tension 43.9 mmHg (35.0-45.0); Calcium, Ionized (arterial) 1.21 mmol/L (1.12-1.30); Carboxyhemoglobin (COHb) 1.1 gm% (0.0-3.0); Hemoglobin (Hb) 12.6 g/dL (12.0-16.0); Potassium - ABG Lab 4.19 mmol/L (3.70-5.30); pH, Arterial 7.48 (7.35-7.45)
[2021-07-17 07:50] LABS: O2 Tension (PaO2), arterial 48.2 mmHg (> 80.0)
[2021-07-17 07:51] LABS: ALV-art Gradient 538.625 mmHg (0-20); Puncture Site RRA
[2021-07-17] MEDS: BARICITINIB 2 MG TAB PO SCH (07:56)
[2021-07-17] MEDS: Enoxaparin Sodium 40 MG/0.4 ML SYRINGE SC SCH ×2 (07:56→20:47)
[2021-07-17] MEDS: Ascorbic Acid 500 mg Chewable Tablet PO SCH (07:57)
[2021-07-17] MEDS: Zinc Sulfate 220 MG CAP PO SCH (07:57)
[2021-07-17] MEDS: Cholecalciferol 1,000 UNITS (25 MCG) TAB PO SCH (07:57)
[2021-07-17] MEDS: Furosemide 40 MG/4 ML VIAL SLOW IVP SCH (07:57)
[2021-07-17] MEDS: Famotidine 20 MG TAB PO SCH ×2 (07:57→20:48)
[2021-07-17] MEDS: Dexamethasone 10 MG/ML VIAL SLOW IVP SCH ×2 (08:03→20:47)
[2021-07-17] MEDS: Rocuronium Bromide 50 MG/5 ML VIAL IVP PRN ×3 (09:17→13:16)
[2021-07-17] MEDS ORDERED: Fentanyl CADD 100 ML ONE (10:32)
[2021-07-17] MEDS: Fentanyl CADD 100 ML IV SCH ×2 (10:37→23:47)
[2021-07-17] MEDS: Lorazepam 2 MG/ML VIAL SLOW IVP PRN (10:39)
[2021-07-17] MEDS ORDERED: Dexamethasone 10 MG/ML VIAL ONE (20:06)
[2021-07-18] MEDS: Cefepime 2 GM in Sodium Chloride 0.9% 100 ML IVPB SCH ×3 (01:25→16:27)
[2021-07-18] MEDS: Propofol 1,000 MG/100 ML VIAL IV PRN ×9 (02:12→23:05)
[2021-07-18] MEDS: Albuterol 200 PUFF (6.7GM INHALER) INH SCH ×4 (02:35→19:13)
[2021-07-18 04:13] LABS: Anion Gap 11 mmol/L (10-20); BUN (Urea Nitrogen) 28 mg/dL (9.8-20.1); Calc. Creatinine Clearance 215 mL/min (70-130); Calcium 8.7 mg/dL (7.8-10.44); Carbon Dioxide 31 mmol/L (23-31); Chloride 98 mmol/L (98-107); Glucose 186 mg/dL (80-115); Potassium 4.1 mmol/L (3.5-5.1); Sodium 136 mmol/L (136-145)
[2021-07-18 04:28] LABS: Hemoglobin 11.6 g/dL (12.0-16.0); Lymphocytes 9 % (21-51); MDiff Complete? YES; Mean Corpuscular HGB CONC 30.8 g/dL (32.0-36.0); Mean Corpuscular Hemoglobin 27.5 pg (27.0-31.0); Mean Corpuscular Volume 89.3 fL (78.0-98.0); Mean Platelet Volume 11.7 fL (7.4-10.4); Metamyelocyte 1 % (0-0); Monocytes 13 % (0-10); Neutrophil 77 % (42-75); Platelet Count 125 thou/uL (130-400); Platelet Morphology Comment Appears Adequate; RBC Distribution Width 15.3 % (11.5-14.5); RBC Morphology Normal; Red Blood Cell (RBC) Count 4.22 mill/uL (4.20-5.40); White Blood Cell (WBC) Count 12.7 thou/uL (4.8-10.8)
[2021-07-18] MEDS: HumaLOG 300 UNITS/3 ML VIAL SC PRN ×2 (04:43→15:30)
[2021-07-18] MEDS: BARICITINIB 2 MG TAB PO SCH (07:56)
[2021-07-18] MEDS: Dexamethasone 10 MG/ML VIAL SLOW IVP SCH (07:56)
[2021-07-18] MEDS: Zinc Sulfate 220 MG CAP PO SCH (07:57)
[2021-07-18] MEDS: Ascorbic Acid 500 mg Chewable Tablet PO SCH (07:57)
[2021-07-18] MEDS: Cholecalciferol 1,000 UNITS (25 MCG) TAB PO SCH (07:57)
[2021-07-18] MEDS: Famotidine 20 MG TAB PO SCH ×2 (07:57→20:37)
[2021-07-18] MEDS: Enoxaparin Sodium 40 MG/0.4 ML SYRINGE SC SCH ×2 (07:58→20:37)
[2021-07-18 08:27] LABS: Actual Bicarbonate (HCO3a) 37.2 mEq/L (22-28); Base Excess (BEa) 10.2 mEq/L (-2.0 to +3.0); Calcium, Ionized (arterial) 1.18 mmol/L (1.12-1.30); Carboxyhemoglobin (COHb) 0.4 gm% (0.0-3.0); O2 Tension (PaO2), arterial 83.6 mmHg (> 80.0); Potassium - ABG Lab 4.15 mmol/L (3.70-5.30); pH, Arterial 7.39 (7.35-7.45)
[2021-07-18 08:29] LABS: CO2 Tension 62.8 mmHg (35.0-45.0); Puncture Site RRA
[2021-07-18] MEDS: Rocuronium Bromide 50 MG/5 ML VIAL IVP PRN (10:39)
[2021-07-18] MEDS ORDERED: Fentanyl CADD 100 ML ONE (13:05)
[2021-07-18] MEDS: Fentanyl CADD 100 ML IV SCH (13:08)
[2021-07-19] MEDS: Albuterol 200 PUFF (6.7GM INHALER) INH SCH ×4 (00:38→19:21)
[2021-07-19] MEDS: Cefepime 2 GM in Sodium Chloride 0.9% 100 ML IVPB SCH ×3 (01:03→16:42)
[2021-07-19] MEDS ORDERED: Fentanyl CADD 100 ML ONE ×2 (01:33→13:31)
[2021-07-19] MEDS: Propofol 1,000 MG/100 ML VIAL IV PRN ×7 (02:06→17:37)
[2021-07-19 04:11] LABS: ALT (SGPT) 58 U/L (8-55); AST (SGOT) 27 U/L (5-34); Albumin 2.5 g/dL (3.4-4.8); Alkaline Phosphatase 79 U/L (40-110); Anion Gap 13 mmol/L (10-20); BUN (Urea Nitrogen) 28 mg/dL (9.8-20.1); Bilirubin, Total 0.8 mg/dL (0.2-1.2); Calc. Creatinine Clearance 211 mL/min (70-130); Calcium 8.5 mg/dL (7.8-10.44); Carbon Dioxide 31 mmol/L (23-31); Chloride 100 mmol/L (98-107); Globulin 2.9 g/dL (2.4-3.5); Glucose 95 mg/dL (80-115); Potassium 4.5 mmol/L (3.5-5.1); Protein, Total 5.4 g/dL (5.8-8.1); Sodium 139 mmol/L (136-145)
[2021-07-19] MEDS: Ascorbic Acid 500 mg Chewable Tablet PO SCH (07:53)
[2021-07-19] MEDS: Cholecalciferol 1,000 UNITS (25 MCG) TAB PO SCH (07:53)
[2021-07-19] MEDS: Lorazepam 2 MG/ML VIAL SLOW IVP PRN ×3 (07:53→20:45)
[2021-07-19] MEDS: Zinc Sulfate 220 MG CAP PO SCH (07:53)
[2021-07-19] MEDS: Famotidine 20 MG TAB PO SCH ×2 (07:55→20:41)
[2021-07-19] MEDS: Dexamethasone 4 mg/ml Vial SLOW IVP SCH (07:55)
[2021-07-19 07:56] LABS: Base Excess (BEa) 7.4 mEq/L (-2.0 to +3.0); CO2 Tension 44.8 mmHg (35.0-45.0); Calcium, Ionized (arterial) 1.16 mmol/L (1.12-1.30); Carboxyhemoglobin (COHb) 0.8 gm% (0.0-3.0); Hemoglobin (Hb) 13.1 g/dL (12.0-16.0); Potassium - ABG Lab 3.76 mmol/L (3.70-5.30); pH, Arterial 7.47 (7.35-7.45)
[2021-07-19] MEDS: Enoxaparin Sodium 40 MG/0.4 ML SYRINGE SC SCH ×2 (07:56→20:41)
[2021-07-19 08:03] LABS: #Eosinphils 0.1 thou/uL (0.0-0.7); #Lymphocytes 1.1 thou/uL (1.20-3.40); #Monocytes 1.1 thou/uL (0.11-0.59); #Neutrophils 12.8 thou/uL (1.40-6.50); %Basophils 0.3 % (0.0-1.0); %Eosinophils 0.8 % (0.0-10.0); %Monocytes 7.4 % (0.0-10.0); %Neutrophils 84.5 % (42.0-75.0); Hemoglobin 13.5 g/dL (12.0-16.0); Mean Corpuscular HGB CONC 31.6 g/dL (32.0-36.0); Mean Corpuscular Hemoglobin 28.3 pg (27.0-31.0); Mean Corpuscular Volume 89.6 fL (78.0-98.0); Mean Platelet Volume 11.2 fL (7.4-10.4); Platelet Count 133 thou/uL (130-400); RBC Distribution Width 15.5 % (11.5-14.5); Red Blood Cell (RBC) Count 4.78 mill/uL (4.20-5.40); White Blood Cell (WBC) Count 15.1 thou/uL (4.8-10.8)
[2021-07-19 08:04] LABS: O2 Tension (PaO2), arterial 41.9 mmHg (> 80.0); Puncture Site RRA
[2021-07-19 12:14] LABS: Base Excess 6.3 mEq/L (-2.0 to +3.0); Calcium, Ionized (venous) 1.08 mmol/L (1.16-1.32); Chloride (VBG) 101 mmol/L (98-106); Hemoglobin (Hb) 12.9 g/dL (11.7-16.0); Potassium (VBG) 3.86 mmol/L (3.70-5.30); Sodium 137.3 mmol/L (133-146); pH (venous) 7.44 (7.32-7.43)
[2021-07-19 12:16] LABS: Actual Bicarbonate (HCO3v) 31 mEq/L (22-28)
[2021-07-19] MEDS: Fentanyl CADD 100 ML IV SCH (13:36)
[2021-07-19] MEDS: HumaLOG 300 UNITS/3 ML VIAL SC PRN (13:41)
[2021-07-19] MEDS: Propofol 500 MG/50 ML VIAL IV PRN ×3 (20:59→23:00)
[2021-07-19] MEDS ORDERED: Pancrelipase DR 12,000 1 CAP FS PRN (21:30)
[2021-07-19] MEDS ORDERED: Sodium Bicarbonate Tab 325 MG TAB PER TUBE PRN (21:30)
[2021-07-20] MEDS: Propofol 500 MG/50 ML VIAL IV PRN ×7 (00:25→10:42)
[2021-07-20] MEDS: Cefepime 2 GM in Sodium Chloride 0.9% 100 ML IVPB SCH ×3 (00:57→17:44)
[2021-07-20] MEDS: Lorazepam 2 MG/ML VIAL SLOW IVP PRN ×4 (00:59→14:30)
[2021-07-20] MEDS ORDERED: Fentanyl CADD 100 ML ONE ×2 (02:14→15:28)
[2021-07-20] MEDS: Fentanyl CADD 100 ML IV SCH ×2 (02:16→15:45)
[2021-07-20 08:10] LABS: Actual Bicarbonate (HCO3a) 27.4 mEq/L (22-28); Base Excess (BEa) 4.5 mEq/L (-2.0 to +3.0); CO2 Tension 35.2 mmHg (35.0-45.0); Calcium, Ionized (arterial) 1.16 mmol/L (1.12-1.30); Carboxyhemoglobin (COHb) 1.2 gm% (0.0-3.0); Hemoglobin (Hb) 12.7 g/dL (12.0-16.0); Potassium - ABG Lab 3.41 mmol/L (3.70-5.30); pH, Arterial 7.51 (7.35-7.45)
[2021-07-20 08:21] LABS: Albumin 2.5 g/dL (3.4-4.8)
[2021-07-20 08:23] LABS: Calcium 8.7 mg/dL (7.8-10.44); Chloride 101 mmol/L (98-107); Potassium 3.5 mmol/L (3.5-5.1); Sodium 138 mmol/L (136-145)
[2021-07-20 08:24] LABS: Globulin 3.3 g/dL (2.4-3.5); Glucose 157 mg/dL (80-115); Protein, Total 5.8 g/dL (5.8-8.1)
[2021-07-20 08:26] LABS: Anion Gap 11 mmol/L (10-20); Bilirubin, Total 0.9 mg/dL (0.2-1.2); Carbon Dioxide 30 mmol/L (23-31)
[2021-07-20 08:27] LABS: Alkaline Phosphatase 85 U/L (40-110); Calc. Creatinine Clearance 218 mL/min (70-130)
[2021-07-20 08:28] LABS: BUN (Urea Nitrogen) 20 mg/dL (9.8-20.1)
[2021-07-20 08:29] LABS: AST (SGOT) 23 U/L (5-34)
[2021-07-20 08:30] LABS: ALT (SGPT) 50 U/L (8-55)
[2021-07-20] MEDS: Albuterol 200 PUFF (6.7GM INHALER) INH SCH ×4 (08:47→19:26)
[2021-07-20 08:48] LABS: O2 Tension (PaO2), arterial 47.8 mmHg (> 80.0)
[2021-07-20 08:49] LABS: Puncture Site RRA
[2021-07-20 08:55] LABS: Band 10 % (5-11); Hemoglobin 12.3 g/dL (12.0-16.0); Lymphocytes 5 % (21-51); MDiff Complete? YES; Mean Corpuscular HGB CONC 31.7 g/dL (32.0-36.0); Mean Corpuscular Hemoglobin 27.8 pg (27.0-31.0); Mean Corpuscular Volume 87.7 fL (78.0-98.0); Mean Platelet Volume 11.3 fL (7.4-10.4); Monocytes 6 % (0-10); Neutrophil 79 % (42-75); Platelet Count 120 thou/uL (130-400); RBC Distribution Width 15.7 % (11.5-14.5); Red Blood Cell (RBC) Count 4.42 mill/uL (4.20-5.40); Toxic Granulation SLIGHT
[2021-07-20] MEDS: Zinc Sulfate 220 MG CAP PO SCH (09:55)
[2021-07-20] MEDS: Ascorbic Acid 500 mg Chewable Tablet PO SCH (09:55)
[2021-07-20] MEDS: Cholecalciferol 1,000 UNITS (25 MCG) TAB PO SCH (09:55)
[2021-07-20] MEDS: Famotidine 20 MG TAB PO SCH ×2 (09:55→21:15)
[2021-07-20] MEDS: Dexamethasone 4 mg/ml Vial SLOW IVP SCH (09:56)
[2021-07-20] MEDS: Enoxaparin Sodium 40 MG/0.4 ML SYRINGE SC SCH ×2 (10:01→21:15)
[2021-07-20] MEDS: HumaLOG 300 UNITS/3 ML VIAL SC PRN ×2 (12:35→16:00)
[2021-07-20] MEDS: Propofol 1,000 MG/100 ML VIAL IV PRN ×2 (17:46→21:15)
[2021-07-21] MEDS: Propofol 1,000 MG/100 ML VIAL IV PRN ×9 (00:11→22:35)
[2021-07-21] MEDS: Cefepime 2 GM in Sodium Chloride 0.9% 100 ML IVPB SCH ×4 (00:19→17:27)
[2021-07-21] MEDS: Albuterol 200 PUFF (6.7GM INHALER) INH SCH ×4 (00:20→18:56)
[2021-07-21] MEDS ORDERED: Fentanyl CADD 100 ML ONE ×3 (03:02→23:53)
[2021-07-21] MEDS: Fentanyl CADD 100 ML IV SCH ×2 (03:05→14:04)
[2021-07-21 06:08] LABS: Hemoglobin 12.1 g/dL (12.0-16.0); Mean Corpuscular Hemoglobin 28.2 pg (27.0-31.0); Mean Corpuscular Volume 88.2 fL (78.0-98.0); Mean Platelet Volume 11.7 fL (7.4-10.4); Platelet Count 90 thou/uL (130-400); RBC Distribution Width 15.4 % (11.5-14.5); White Blood Cell (WBC) Count 12.4 thou/uL (4.8-10.8)
[2021-07-21 06:36] LABS: ALT (SGPT) 43 U/L (8-55); AST (SGOT) 19 U/L (5-34); Albumin 2.5 g/dL (3.4-4.8); Alkaline Phosphatase 76 U/L (40-110); Anion Gap 11 mmol/L (10-20); BUN (Urea Nitrogen) 18 mg/dL (9.8-20.1); Bilirubin, Total 0.6 mg/dL (0.2-1.2); Calc. Creatinine Clearance 241 mL/min (70-130); Calcium 8.7 mg/dL (7.8-10.44); Carbon Dioxide 30 mmol/L (23-31); Chloride 102 mmol/L (98-107); Globulin 3.2 g/dL (2.4-3.5); Glucose 124 mg/dL (80-115); Magnesium 2.2 mg/dL (1.6-2.6); Potassium 3.5 mmol/L (3.5-5.1); Protein, Total 5.7 g/dL (5.8-8.1); Sodium 139 mmol/L (136-145)
[2021-07-21 06:43] LABS: Band 8 % (5-11); Eosinophils 1 % (0-10); Lymphocytes 2 % (21-51); MDiff Complete? YES; Metamyelocyte 1 % (0-0); Monocytes 6 % (0-10); Myelocyte 2 % (0-0); Neutrophil 80 % (42-75); Platelet Morphology Comment Appears Decreased
[2021-07-21 08:35] LABS: Actual Bicarbonate (HCO3a) 30.1 mEq/L (22-28); Base Excess (BEa) 4.5 mEq/L (-2.0 to +3.0); CO2 Tension 48.6 mmHg (35.0-45.0); Calcium, Ionized (arterial) 1.16 mmol/L (1.12-1.30); Carboxyhemoglobin (COHb) 1.6 gm% (0.0-3.0); Hemoglobin (Hb) 13.8 g/dL (12.0-16.0); pH, Arterial 7.41 (7.35-7.45)
[2021-07-21] MEDS ORDERED: Potassium Phosphate 15 MMOL in Sodium Chloride 0.9% 250 ML 250 ML IVPB SCH (09:00)
[2021-07-21 09:46] LABS: O2 Tension (PaO2), arterial 50.2 mmHg (> 80.0)
[2021-07-21 09:47] LABS: Puncture Site RRA
[2021-07-21] MEDS: Enoxaparin Sodium 40 MG/0.4 ML SYRINGE SC SCH ×3 (10:25→19:57)
[2021-07-21] MEDS: Dexamethasone 4 mg/ml Vial SLOW IVP SCH (10:26)
[2021-07-21] MEDS: Famotidine 20 MG TAB PO SCH ×2 (10:26→19:57)
[2021-07-21] MEDS: Cholecalciferol 1,000 UNITS (25 MCG) TAB PO SCH (10:26)
[2021-07-21] MEDS: Zinc Sulfate 220 MG CAP PO SCH (10:26)
[2021-07-21] MEDS: Ascorbic Acid 500 mg Chewable Tablet PO SCH (10:26)
[2021-07-21] MEDS: Lorazepam 2 MG/ML VIAL SLOW IVP PRN ×2 (11:37→13:27)
[2021-07-21] MEDS: HumaLOG 300 UNITS/3 ML VIAL SC PRN (20:26)
[2021-07-22] MEDS: Fentanyl CADD 100 ML IV SCH ×3 (00:08→20:25)
[2021-07-22] MEDS: Cefepime 2 GM in Sodium Chloride 0.9% 100 ML IVPB SCH ×2 (00:09→10:43)
[2021-07-22] MEDS: Propofol 1,000 MG/100 ML VIAL IV PRN ×9 (00:19→23:26)
[2021-07-22 04:29] LABS: ALT (SGPT) 40 U/L (8-55); AST (SGOT) 21 U/L (5-34); Albumin 2.5 g/dL (3.4-4.8); Alkaline Phosphatase 80 U/L (40-110); Anion Gap 10 mmol/L (10-20); BUN (Urea Nitrogen) 17 mg/dL (9.8-20.1); Bilirubin, Total 0.4 mg/dL (0.2-1.2); Calc. Creatinine Clearance 251 mL/min (70-130); Calcium 8.2 mg/dL (7.8-10.44); Carbon Dioxide 32 mmol/L (23-31); Chloride 103 mmol/L (98-107); Globulin 2.5 g/dL (2.4-3.5); Glucose 113 mg/dL (80-115); Magnesium 2.1 mg/dL (1.6-2.6); Phosphorus 2.2 mg/dL (2.3-4.7); Potassium 4.1 mmol/L (3.5-5.1); Sodium 141 mmol/L (136-145)
[2021-07-22 05:13] LABS: #Eosinphils 0.1 thou/uL (0.0-0.7); #Lymphocytes 0.5 thou/uL (1.20-3.40); #Monocytes 0.5 thou/uL (0.11-0.59); #Neutrophils 9.7 thou/uL (1.40-6.50); %Basophils 0.1 % (0.0-1.0); %Lymphocytes 4.6 % (21.0-51.0); %Monocytes 4.6 % (0.0-10.0); %Neutrophils 89.6 % (42.0-75.0); Hemoglobin 11.3 g/dL (12.0-16.0); Mean Corpuscular HGB CONC 32.3 g/dL (32.0-36.0); Mean Corpuscular Hemoglobin 28.6 pg (27.0-31.0); Mean Corpuscular Volume 88.7 fL (78.0-98.0); Mean Platelet Volume 12.2 fL (7.4-10.4); Platelet Count 77 thou/uL (130-400); Platelet Morphology Comment Appears Decreased; RBC Distribution Width 15.6 % (11.5-14.5); Red Blood Cell (RBC) Count 3.94 mill/uL (4.20-5.40); White Blood Cell (WBC) Count 10.9 thou/uL (4.8-10.8)
[2021-07-22] MEDS: Lorazepam 2 MG/ML VIAL SLOW IVP PRN ×2 (07:14→15:26)
[2021-07-22 08:45] LABS: Actual Bicarbonate (HCO3a) 32.9 mEq/L (22-28); Base Excess (BEa) 7.5 mEq/L (-2.0 to +3.0); Calcium, Ionized (arterial) 1.14 mmol/L (1.12-1.30); Hemoglobin (Hb) 11.7 g/dL (12.0-16.0); Potassium - ABG Lab 3.59 mmol/L (3.70-5.30); pH, Arterial 7.44 (7.35-7.45)
[2021-07-22 08:52] LABS: O2 Tension (PaO2), arterial 47.8 mmHg (> 80.0)
[2021-07-22 08:53] LABS: Puncture Site RRA
[2021-07-22] MEDS: Enoxaparin Sodium 40 MG/0.4 ML SYRINGE SC SCH ×2 (09:22→20:26)
[2021-07-22] MEDS: Zinc Sulfate 220 MG CAP PO SCH (09:24)
[2021-07-22] MEDS: Ascorbic Acid 500 mg Chewable Tablet PO SCH (09:24)
[2021-07-22] MEDS: Cholecalciferol 1,000 UNITS (25 MCG) TAB PO SCH (09:24)
[2021-07-22] MEDS: Dexamethasone 4 mg/ml Vial SLOW IVP SCH ×2 (09:24→20:26)
[2021-07-22] MEDS: Famotidine 20 MG TAB PO SCH ×2 (09:24→20:27)
[2021-07-22] MEDS: Rocuronium Bromide 50 MG/5 ML VIAL IVP PRN (09:29)
[2021-07-22] MEDS ORDERED: Fentanyl CADD 100 ML ONE ×2 (10:16→19:21)
[2021-07-22] MEDS: Albuterol 200 PUFF (6.7GM INHALER) INH SCH ×4 (10:47→18:43)
[2021-07-22] MEDS: HumaLOG 300 UNITS/3 ML VIAL SC PRN (15:49)
[2021-07-23] MEDS: Propofol 1,000 MG/100 ML VIAL IV PRN ×7 (02:21→20:52)
[2021-07-23] MEDS: Albuterol 200 PUFF (6.7GM INHALER) INH SCH ×4 (02:39→18:57)
[2021-07-23 04:50] LABS: #Lymphocytes 0.5 thou/uL (1.20-3.40); #Monocytes 0.4 thou/uL (0.11-0.59); #Neutrophils 7.9 thou/uL (1.40-6.50); %Basophils 0.1 % (0.0-1.0); %Eosinophils 0.4 % (0.0-10.0); %Lymphocytes 5.9 % (21.0-51.0); %Monocytes 4.6 % (0.0-10.0); %Neutrophils 89.1 % (42.0-75.0); Hemoglobin 11.2 g/dL (12.0-16.0); Mean Corpuscular HGB CONC 33.1 g/dL (32.0-36.0); Mean Corpuscular Hemoglobin 29.6 pg (27.0-31.0); Mean Corpuscular Volume 89.4 fL (78.0-98.0); Mean Platelet Volume 12.7 fL (7.4-10.4); Platelet Count 72 thou/uL (130-400); RBC Distribution Width 15.5 % (11.5-14.5); Red Blood Cell (RBC) Count 3.76 mill/uL (4.20-5.40); White Blood Cell (WBC) Count 8.9 thou/uL (4.8-10.8)
[2021-07-23 05:05] LABS: Anion Gap 11 mmol/L (10-20); BUN (Urea Nitrogen) 15 mg/dL (9.8-20.1); Calc. Creatinine Clearance 260 mL/min (70-130); Calcium 8.6 mg/dL (7.8-10.44); Carbon Dioxide 33 mmol/L (23-31); Chloride 101 mmol/L (98-107); Glucose 150 mg/dL (80-115); Potassium 4.3 mmol/L (3.5-5.1); Sodium 141 mmol/L (136-145)
[2021-07-23] MEDS ORDERED: Fentanyl CADD 100 ML ONE ×2 (05:51→15:40)
[2021-07-23] MEDS: Fentanyl CADD 100 ML IV SCH ×2 (06:14→15:43)
[2021-07-23] MEDS: Cholecalciferol 1,000 UNITS (25 MCG) TAB PO SCH (08:00)
[2021-07-23] MEDS: Enoxaparin Sodium 40 MG/0.4 ML SYRINGE SC SCH ×2 (08:00→20:53)
[2021-07-23] MEDS: Dexamethasone 4 mg/ml Vial SLOW IVP SCH ×2 (08:00→20:54)
[2021-07-23] MEDS: Zinc Sulfate 220 MG CAP PO SCH (08:00)
[2021-07-23] MEDS: Ascorbic Acid 500 mg Chewable Tablet PO SCH (08:00)
[2021-07-23] MEDS: Famotidine 20 MG TAB PO SCH ×2 (08:01→20:55)
[2021-07-23 08:41] LABS: Actual Bicarbonate (HCO3a) 32.9 mEq/L (22-28); Base Excess (BEa) 7.9 mEq/L (-2.0 to +3.0); CO2 Tension 47.4 mmHg (35.0-45.0); Calcium, Ionized (arterial) 1.17 mmol/L (1.12-1.30); Carboxyhemoglobin (COHb) 0.9 gm% (0.0-3.0); Hemoglobin (Hb) 12.1 g/dL (12.0-16.0); Potassium - ABG Lab 4.01 mmol/L (3.70-5.30); pH, Arterial 7.46 (7.35-7.45)
[2021-07-23 09:10] LABS: O2 Tension (PaO2), arterial 53.2 mmHg (> 80.0); Puncture Site LRA
[2021-07-23] MEDS: Lorazepam 2 MG/ML VIAL SLOW IVP PRN (09:39)
[2021-07-23] MEDS: Rocuronium Bromide 50 MG/5 ML VIAL IVP PRN (09:39)
[2021-07-23] MEDS: HumaLOG 300 UNITS/3 ML VIAL SC PRN (16:28)
[2021-07-24] MEDS: Propofol 1,000 MG/100 ML VIAL IV PRN ×7 (00:06→20:59)
[2021-07-24] MEDS: Albuterol 200 PUFF (6.7GM INHALER) INH SCH ×4 (01:12→18:19)
[2021-07-24] MEDS ORDERED: Fentanyl CADD 100 ML ONE ×3 (01:29→21:30)
[2021-07-24] MEDS: Fentanyl CADD 100 ML IV SCH ×3 (01:34→21:37)
[2021-07-24 03:54] LABS: #Eosinphils 0.1 thou/uL (0.0-0.7); #Lymphocytes 0.7 thou/uL (1.20-3.40); #Monocytes 0.7 thou/uL (0.11-0.59); #Neutrophils 10.8 thou/uL (1.40-6.50); %Basophils 0.1 % (0.0-1.0); %Eosinophils 0.6 % (0.0-10.0); %Lymphocytes 5.7 % (21.0-51.0); %Monocytes 5.7 % (0.0-10.0); %Neutrophils 87.9 % (42.0-75.0); Hemoglobin 12.3 g/dL (12.0-16.0); Mean Corpuscular Hemoglobin 29.3 pg (27.0-31.0); Mean Corpuscular Volume 88.6 fL (78.0-98.0); Platelet Count 80 thou/uL (130-400); RBC Distribution Width 15.9 % (11.5-14.5); Red Blood Cell (RBC) Count 4.21 mill/uL (4.20-5.40); White Blood Cell (WBC) Count 12.3 thou/uL (4.8-10.8)
[2021-07-24 04:16] LABS: Anion Gap 12 mmol/L (10-20); BUN (Urea Nitrogen) 16 mg/dL (9.8-20.1); Calc. Creatinine Clearance 260 mL/min (70-130); Calcium 8.5 mg/dL (7.8-10.44); Carbon Dioxide 33 mmol/L (23-31); Chloride 100 mmol/L (98-107); Glucose 140 mg/dL (80-115); Sodium 141 mmol/L (136-145)
[2021-07-24] MEDS: Enoxaparin Sodium 40 MG/0.4 ML SYRINGE SC SCH ×2 (08:08→20:58)
[2021-07-24] MEDS: Cholecalciferol 1,000 UNITS (25 MCG) TAB PO SCH (08:08)
[2021-07-24] MEDS: Zinc Sulfate 220 MG CAP PO SCH (08:08)
[2021-07-24] MEDS: Famotidine 20 MG TAB PO SCH ×2 (08:08→20:59)
[2021-07-24] MEDS: Dexamethasone 4 mg/ml Vial SLOW IVP SCH ×2 (08:08→20:58)
[2021-07-24] MEDS: Ascorbic Acid 500 mg Chewable Tablet PO SCH (08:08)
[2021-07-24 08:36] LABS: Actual Bicarbonate (HCO3a) 33.1 mEq/L (22-28); Base Excess (BEa) 8.1 mEq/L (-2.0 to +3.0); CO2 Tension 47.6 mmHg (35.0-45.0); Calcium, Ionized (arterial) 1.19 mmol/L (1.12-1.30); Carboxyhemoglobin (COHb) 0.9 gm% (0.0-3.0); Hemoglobin (Hb) 12.2 g/dL (12.0-16.0); Potassium - ABG Lab 3.72 mmol/L (3.70-5.30); pH, Arterial 7.46 (7.35-7.45)
[2021-07-24 08:37] LABS: O2 Tension (PaO2), arterial 53.5 mmHg (> 80.0); Puncture Site RRA
[2021-07-24] MEDS: HumaLOG 300 UNITS/3 ML VIAL SC PRN (16:18)
[2021-07-25] MEDS: Propofol 1,000 MG/100 ML VIAL IV PRN ×10 (00:20→22:17)
[2021-07-25] MEDS: Albuterol 200 PUFF (6.7GM INHALER) INH SCH ×5 (02:51→23:34)
[2021-07-25] MEDS: Lorazepam 2 MG/ML VIAL SLOW IVP PRN ×5 (03:27→20:40)
[2021-07-25] MEDS: HumaLOG 300 UNITS/3 ML VIAL SC PRN ×2 (04:20→15:42)
[2021-07-25 04:23] LABS: #Eosinphils 0.1 thou/uL (0.0-0.7); #Lymphocytes 0.8 thou/uL (1.20-3.40); #Neutrophils 9.5 thou/uL (1.40-6.50); %Basophils 0.1 % (0.0-1.0); %Eosinophils 0.8 % (0.0-10.0); %Lymphocytes 7.1 % (21.0-51.0); %Monocytes 8.4 % (0.0-10.0); %Neutrophils 83.5 % (42.0-75.0); Hemoglobin 11.1 g/dL (12.0-16.0); Mean Corpuscular HGB CONC 31.5 g/dL (32.0-36.0); Mean Corpuscular Hemoglobin 27.8 pg (27.0-31.0); Mean Corpuscular Volume 88.3 fL (78.0-98.0); Mean Platelet Volume 12.2 fL (7.4-10.4); Platelet Count 82 thou/uL (130-400); RBC Distribution Width 15.8 % (11.5-14.5); Red Blood Cell (RBC) Count 3.99 mill/uL (4.20-5.40); White Blood Cell (WBC) Count 11.4 thou/uL (4.8-10.8)
[2021-07-25 04:39] LABS: Anion Gap 8 mmol/L (10-20); BUN (Urea Nitrogen) 15 mg/dL (9.8-20.1); Calc. Creatinine Clearance 261 mL/min (70-130); Calcium 8.2 mg/dL (7.8-10.44); Carbon Dioxide 34 mmol/L (23-31); Chloride 101 mmol/L (98-107); Glucose 147 mg/dL (80-115); Potassium 3.8 mmol/L (3.5-5.1); Sodium 139 mmol/L (136-145)
[2021-07-25 07:30] LABS: Base Excess (BEa) 9.8 mEq/L (-2.0 to +3.0); CO2 Tension 50.4 mmHg (35.0-45.0); Calcium, Ionized (arterial) 1.17 mmol/L (1.12-1.30); Carboxyhemoglobin (COHb) 1.1 gm% (0.0-3.0); Potassium - ABG Lab 3.66 mmol/L (3.70-5.30); pH, Arterial 7.46 (7.35-7.45)
[2021-07-25 07:31] LABS: O2 Tension (PaO2), arterial 53.8 mmHg (> 80.0)
[2021-07-25 07:32] LABS: Puncture Site RRA
[2021-07-25] MEDS ORDERED: Fentanyl CADD 100 ML ONE ×2 (07:42→17:12)
[2021-07-25] MEDS: Fentanyl CADD 100 ML IV SCH ×2 (07:47→17:15)
[2021-07-25] MEDS: Enoxaparin Sodium 40 MG/0.4 ML SYRINGE SC SCH ×2 (08:19→20:40)
[2021-07-25] MEDS: Zinc Sulfate 220 MG CAP PO SCH (08:19)
[2021-07-25] MEDS: Ascorbic Acid 500 mg Chewable Tablet PO SCH (08:19)
[2021-07-25] MEDS: Cholecalciferol 1,000 UNITS (25 MCG) TAB PO SCH (08:19)
[2021-07-25] MEDS: Famotidine 20 MG TAB PO SCH ×2 (08:19→20:40)
[2021-07-25] MEDS: Dexamethasone 4 mg/ml Vial SLOW IVP SCH ×2 (08:19→20:40)
[2021-07-25] MEDS: Rocuronium Bromide 50 MG/5 ML VIAL IVP PRN ×2 (17:30→21:22)
[2021-07-25] MEDS: Acetaminophen 325 MG TAB PO PRN (18:12)
[2021-07-26] MEDS: Propofol 1,000 MG/100 ML VIAL IV PRN ×8 (00:39→22:51)
[2021-07-26] MEDS ORDERED: Fentanyl CADD 100 ML ONE ×3 (03:27→23:20)
[2021-07-26] MEDS: Fentanyl CADD 100 ML IV SCH ×2 (03:31→23:23)
[2021-07-26] MEDS: HumaLOG 300 UNITS/3 ML VIAL SC PRN ×3 (04:40→21:54)
[2021-07-26 04:41] LABS: Anion Gap 13 mmol/L (10-20); BUN (Urea Nitrogen) 14 mg/dL (9.8-20.1); Calc. Creatinine Clearance 222 mL/min (70-130); Calcium 8.3 mg/dL (7.8-10.44); Carbon Dioxide 30 mmol/L (23-31); Chloride 100 mmol/L (98-107); Glucose 195 mg/dL (80-115); Potassium 3.9 mmol/L (3.5-5.1); Sodium 139 mmol/L (136-145)
[2021-07-26 05:49] LABS: Band 40 % (5-11); Hemoglobin 11.8 g/dL (12.0-16.0); Lymphocytes 9 % (21-51); MDiff Complete? YES; Mean Corpuscular HGB CONC 31.5 g/dL (32.0-36.0); Mean Corpuscular Hemoglobin 27.7 pg (27.0-31.0); Mean Platelet Volume 11.5 fL (7.4-10.4); Metamyelocyte 5 % (0-0); Monocytes 2 % (0-10); Myelocyte 1 % (0-0); Neutrophil 43 % (42-75); Platelet Count 86 thou/uL (130-400); Platelet Morphology Comment Appears Decreased; Polychromasia SLIGHT = 2-3 cells (100X) (0-2/hpf); RBC Distribution Width 15.9 % (11.5-14.5); Red Blood Cell (RBC) Count 4.26 mill/uL (4.20-5.40); White Blood Cell (WBC) Count 10.3 thou/uL (4.8-10.8)
[2021-07-26] MEDS: Rocuronium Bromide 50 MG/5 ML VIAL IVP PRN (07:03)
[2021-07-26] MEDS: Lorazepam 2 MG/ML VIAL SLOW IVP PRN (07:03)
[2021-07-26 07:37] LABS: Actual Bicarbonate (HCO3a) 27.7 mEq/L (22-28); Base Excess (BEa) 2.4 mEq/L (-2.0 to +3.0); CO2 Tension 45.5 mmHg (35.0-45.0); Calcium, Ionized (arterial) 1.16 mmol/L (1.12-1.30); Carboxyhemoglobin (COHb) 0.9 gm% (0.0-3.0); Potassium - ABG Lab 3.44 mmol/L (3.70-5.30)
[2021-07-26] MEDS: Enoxaparin Sodium 40 MG/0.4 ML SYRINGE SC SCH ×2 (07:42→21:18)
[2021-07-26] MEDS: Acetaminophen 325 MG TAB PO PRN ×3 (07:42→18:11)
[2021-07-26] MEDS: Famotidine 20 MG TAB PO SCH ×2 (07:43→21:19)
[2021-07-26] MEDS: Zinc Sulfate 220 MG CAP PO SCH (07:43)
[2021-07-26] MEDS: Ascorbic Acid 500 mg Chewable Tablet PO SCH (07:43)
[2021-07-26] MEDS: Dexamethasone 4 mg/ml Vial SLOW IVP SCH ×2 (07:43→21:18)
[2021-07-26 07:56] LABS: O2 Tension (PaO2), arterial 54.1 mmHg (> 80.0)
[2021-07-26 07:57] LABS: ALV-art Gradient 530.725 mmHg (0-20); Puncture Site RRA
[2021-07-26] MEDS: Albuterol 200 PUFF (6.7GM INHALER) INH SCH ×3 (08:16→18:58)
[2021-07-26] MEDS ORDERED: Norepinephrine 8 MG/0.9% NS 250 ML ONE (08:34)
[2021-07-26] MEDS ORDERED: CEFEPIME HCL IN DEXTROSE 5 % 1 GM in Premix Bag 1 BAG IVPB SCH (09:00)
[2021-07-26] MEDS: Cholecalciferol 1,000 UNITS (25 MCG) TAB PO SCH (09:12)
[2021-07-26] MEDS: Micafungin 100 MG in Sodium Chloride 0.9% 100 ML IVPB SCH (09:12)
[2021-07-26] MEDS: VANCOMYCIN 1.75 GM/350 ML BAG 1.75 GM in Premix Bag 1 BAG IVPB SCH ×2 (10:37→21:54)
[2021-07-26] MEDS: Norepinephrine 8 MG/0.9% NS 250 ML IVPB SCH ×2 (18:42→23:01)
[2021-07-26] MEDS: Cefepime 1 GM in Sodium Chloride 0.9% 100 ML IVPB SCH (21:33)
[2021-07-27] MEDS: Albuterol 200 PUFF (6.7GM INHALER) INH SCH ×5 (01:00→19:30)
[2021-07-27 07:20] LABS: Actual Bicarbonate (HCO3a) 31.8 mEq/L (22-28); Base Excess (BEa) 6.5 mEq/L (-2.0 to +3.0); CO2 Tension 49.3 mmHg (35.0-45.0); Calcium, Ionized (arterial) 1.19 mmol/L (1.12-1.30); Carboxyhemoglobin (COHb) 0.4 gm% (0.0-3.0); Hemoglobin (Hb) 11.3 g/dL (12.0-16.0); pH, Arterial 7.43 (7.35-7.45)
[2021-07-27 07:22] LABS: ALV-art Gradient 558.425 mmHg (0-20); O2 Tension (PaO2), arterial 57.3 mmHg (> 80.0); Puncture Site RRA
[2021-07-27] MEDS: Cefepime 1 GM in Sodium Chloride 0.9% 100 ML IVPB SCH ×2 (08:12→20:33)
[2021-07-27] MEDS: Ascorbic Acid 500 mg Chewable Tablet PO SCH (08:12)
[2021-07-27] MEDS: Enoxaparin Sodium 40 MG/0.4 ML SYRINGE SC SCH ×2 (08:12→20:33)
[2021-07-27] MEDS: Famotidine 20 MG TAB PO SCH ×2 (08:13→20:33)
[2021-07-27] MEDS: Zinc Sulfate 220 MG CAP PO SCH (08:13)
[2021-07-27] MEDS: Dexamethasone 4 mg/ml Vial SLOW IVP SCH ×2 (08:13→20:33)
[2021-07-27] MEDS: Rocuronium Bromide 50 MG/5 ML VIAL IVP PRN ×4 (08:23→18:51)
[2021-07-27] MEDS: Lorazepam 2 MG/ML VIAL SLOW IVP PRN ×4 (08:23→18:51)
[2021-07-27] MEDS: Propofol 1,000 MG/100 ML VIAL IV PRN ×8 (08:41→21:38)
[2021-07-27] MEDS: Norepinephrine 8 MG/0.9% NS 250 ML IVPB SCH ×2 (09:00→20:22)
[2021-07-27] MEDS: Micafungin 100 MG in Sodium Chloride 0.9% 100 ML IVPB SCH (09:00)
[2021-07-27] MEDS: Fentanyl CADD 100 ML IV SCH ×2 (09:08→23:55)
[2021-07-27] MEDS: Cholecalciferol 1,000 UNITS (25 MCG) TAB PO SCH (09:13)
[2021-07-27] MEDS: VANCOMYCIN 1.75 GM/350 ML BAG 1.75 GM in Premix Bag 1 BAG IVPB SCH (10:02)
[2021-07-27] MEDS: HumaLOG 300 UNITS/3 ML VIAL SC PRN ×3 (10:16→22:47)
[2021-07-27 11:44] LABS: Anion Gap 12 mmol/L (10-20); BUN (Urea Nitrogen) 13 mg/dL (9.8-20.1); Calc. Creatinine Clearance 221 mL/min (70-130); Calcium 8.4 mg/dL (7.8-10.44); Carbon Dioxide 29 mmol/L (23-31); Chloride 103 mmol/L (98-107); Potassium 3.4 mmol/L (3.5-5.1); Sodium 141 mmol/L (136-145)
[2021-07-27 11:46] LABS: ALT (SGPT) 52 U/L (8-55); AST (SGOT) 29 U/L (5-34); Albumin 2.4 g/dL (3.4-4.8); Alkaline Phosphatase 92 U/L (40-110); Bilirubin, Total 1.2 mg/dL (0.2-1.2); Globulin 2.9 g/dL (2.4-3.5); Protein, Total 5.3 g/dL (5.8-8.1)
[2021-07-27 13:39] LABS: Hemoglobin 11.1 g/dL (12.0-16.0); Manual Diff?? YES; Mean Corpuscular HGB CONC 31.5 g/dL (32.0-36.0); Mean Corpuscular Hemoglobin 28.2 pg (27.0-31.0); Mean Corpuscular Volume 89.7 fL (78.0-98.0); Mean Platelet Volume 10.7 fL (7.4-10.4); Platelet Count 92 thou/uL (130-400); RBC Distribution Width 16.2 % (11.5-14.5); Red Blood Cell (RBC) Count 3.93 mill/uL (4.20-5.40); White Blood Cell (WBC) Count 11.4 thou/uL (4.8-10.8)
[2021-07-27 13:40] LABS: MDiff Complete? YES
[2021-07-27 13:41] LABS: Band 32 % (5-11); Lymphocytes 23 % (21-51); Monocytes 15 % (0-10); Neutrophil 30 % (42-75); Platelet Morphology Comment Appears Decreased; RBC Morphology Normal
[2021-07-27] MEDS: Acetaminophen 325 MG TAB PO PRN (16:16)
[2021-07-27 17:59] VITALS: TEMP 100.9
[2021-07-27 21:59] LABS: Vancomycin, Trough 10.4 ug/mL
[2021-07-27] MEDS: VANCOMYCIN 2 GRAM/400 ML BAG 2 GM in Premix Bag 1 BAG IVPB SCH (22:40)
[2021-07-27] MEDS ORDERED: Fentanyl CADD 100 ML ONE (23:52)
[2021-07-28] MEDS: Albuterol 200 PUFF (6.7GM INHALER) INH SCH ×4 (00:50→19:08)
[2021-07-28] MEDS: Propofol 1,000 MG/100 ML VIAL IV PRN ×6 (00:52→19:28)
[2021-07-28] MEDS: Norepinephrine 8 MG/0.9% NS 250 ML IVPB SCH ×5 (00:53→21:42)
[2021-07-28] MEDS: VANCOMYCIN 1.75 GM/350 ML BAG 1.75 GM in Premix Bag 1 BAG IVPB SCH (03:35)
[2021-07-28 04:45] LABS: Anion Gap 14 mmol/L (10-20); BUN (Urea Nitrogen) 24 mg/dL (9.8-20.1); Calc. Creatinine Clearance 125 mL/min (70-130); Calcium 8.3 mg/dL (7.8-10.44); Carbon Dioxide 25 mmol/L (23-31); Chloride 104 mmol/L (98-107); Glucose 166 mg/dL (80-115); Potassium 3.2 mmol/L (3.5-5.1); Sodium 140 mmol/L (136-145)
[2021-07-28 05:48] LABS: Band 37 % (5-11); Hemoglobin 10.2 g/dL (12.0-16.0); Hypochromia SLIGHT = 6-15 cells (100X) (0-5/hpf); Lymphocytes 4 % (21-51); MDiff Complete? YES; Mean Corpuscular HGB CONC 30.3 g/dL (32.0-36.0); Mean Corpuscular Hemoglobin 27.9 pg (27.0-31.0); Mean Corpuscular Volume 92.1 fL (78.0-98.0); Mean Platelet Volume 11.6 fL (7.4-10.4); Metamyelocyte 21 % (0-0); Monocytes 8 % (0-10); Myelocyte 7 % (0-0); Neutrophil 23 % (42-75); Nucleated RBC 1 % (0); Platelet Count 58 thou/uL (130-400); Platelet Morphology Comment Appears Decreased; Polychromasia SLIGHT = 2-3 cells (100X) (0-2/hpf); RBC Distribution Width 16.5 % (11.5-14.5); Red Blood Cell (RBC) Count 3.67 mill/uL (4.20-5.40); Toxic Granulation MODERATE; Vacuoles SLIGHT; White Blood Cell (WBC) Count 6.6 thou/uL (4.8-10.8)
[2021-07-28 07:54] LABS: Actual Bicarbonate (HCO3a) 24.8 mEq/L (22-28); Base Excess (BEa) -2.8 mEq/L (-2.0 to +3.0); CO2 Tension 57.1 mmHg (35.0-45.0); Calcium, Ionized (arterial) 1.15 mmol/L (1.12-1.30); Carboxyhemoglobin (COHb) 0.8 gm% (0.0-3.0); Hemoglobin (Hb) 10.5 g/dL (12.0-16.0); pH, Arterial 7.26 (7.35-7.45)
[2021-07-28 08:28] LABS: O2 Tension (PaO2), arterial 49.1 mmHg (> 80.0)
[2021-07-28 08:29] LABS: ALV-art Gradient 592.525 mmHg (0-20); Puncture Site RRA
[2021-07-28] MEDS: Cefepime 1 GM in Sodium Chloride 0.9% 100 ML IVPB SCH ×2 (09:05→21:42)
[2021-07-28] MEDS: Dexamethasone 4 mg/ml Vial SLOW IVP SCH ×2 (09:06→21:41)
[2021-07-28] MEDS: Ascorbic Acid 500 mg Chewable Tablet PO SCH (09:10)
[2021-07-28] MEDS: Famotidine 20 MG TAB PO SCH ×2 (09:10→21:44)
[2021-07-28] MEDS: Enoxaparin Sodium 40 MG/0.4 ML SYRINGE SC SCH ×2 (09:11→21:42)
[2021-07-28] MEDS: Zinc Sulfate 220 MG CAP PO SCH (09:11)
[2021-07-28] MEDS: Cholecalciferol 1,000 UNITS (25 MCG) TAB PO SCH (09:11)
[2021-07-28] MEDS: VANCOMYCIN 2 GRAM/400 ML BAG 2 GM in Premix Bag 1 BAG IVPB SCH ×2 (09:15→22:19)
[2021-07-28] MEDS: Micafungin 100 MG in Sodium Chloride 0.9% 100 ML IVPB SCH (09:37)
[2021-07-28] MEDS: HumaLOG 300 UNITS/3 ML VIAL SC PRN ×2 (10:16→15:48)
[2021-07-28 11:45] VITALS: BP 124/73
[2021-07-28] MEDS ORDERED: Electrolyte Replacement Protocol FS PRN (12:15)
[2021-07-28] MEDS ORDERED: Potassium Chloride 40 MEQ in Premix Bag 1 BAG IVPB SCH (13:00)
[2021-07-28] MEDS: Fentanyl CADD 100 ML IV SCH (13:17)
[2021-07-28] MEDS: Rocuronium Bromide 50 MG/5 ML VIAL IVP PRN (13:19)
[2021-07-28] MEDS: Lorazepam 2 MG/ML VIAL SLOW IVP PRN ×2 (13:19→20:19)
[2021-07-28] MEDS: Metoclopramide HCl 10 MG/2 ML VIAL IVP SCH (18:19)
[2021-07-28 19:14] LABS: Potassium 4.8 mmol/L (3.5-5.1)
[2021-07-28] MEDS: Vasopressin 20 UNIT, Admixture Fee 1 EACH in Sodium Chloride 0.9% 50 ML IV SCH (19:22)
[2021-07-28] MEDS: Morphine 2 MG/ML VIAL SLOW IVP PRN (20:34)
[2021-07-29] MEDS: Norepinephrine 8 MG/0.9% NS 250 ML IVPB SCH ×7 (00:55→22:56)
[2021-07-29] MEDS: Metoclopramide HCl 10 MG/2 ML VIAL IVP SCH ×4 (00:55→18:00)
[2021-07-29] MEDS: Propofol 1,000 MG/100 ML VIAL IV PRN (00:55)
[2021-07-29] MEDS ORDERED: Fentanyl CADD 100 ML ONE (00:59)
[2021-07-29] MEDS: Albuterol 200 PUFF (6.7GM INHALER) INH SCH ×4 (01:02→19:00)
[2021-07-29] MEDS: Fentanyl CADD 100 ML IV SCH (01:04)
[2021-07-29] MEDS: Vasopressin 20 UNIT, Admixture Fee 1 EACH in Sodium Chloride 0.9% 50 ML IV SCH ×3 (03:34→15:43)
[2021-07-29 04:39] LABS: Band 17 % (5-11); Hemoglobin 10.9 g/dL (12.0-16.0); Hypochromia SLIGHT = 6-15 cells (100X) (0-5/hpf); Lymphocytes 12 % (21-51); MDiff Complete? YES; Mean Corpuscular Hemoglobin 30.5 pg (27.0-31.0); Mean Corpuscular Volume 92.4 fL (78.0-98.0); Mean Platelet Volume 12.9 fL (7.4-10.4); Monocytes 21 % (0-10); Neutrophil 50 % (42-75); Nucleated RBC 1 % (0); Platelet Count 40 thou/uL (130-400); Platelet Morphology Comment Appears Decreased; RBC Distribution Width 16.9 % (11.5-14.5); Red Blood Cell (RBC) Count 3.56 mill/uL (4.20-5.40); White Blood Cell (WBC) Count 9.2 thou/uL (4.8-10.8)
[2021-07-29 06:10] LABS: Anion Gap 20 mmol/L (10-20); BUN (Urea Nitrogen) 44 mg/dL (9.8-20.1); Calc. Creatinine Clearance 61 mL/min (70-130); Calcium 7.9 mg/dL (7.8-10.44); Carbon Dioxide 20 mmol/L (23-31); Chloride 102 mmol/L (98-107); Glucose 156 mg/dL (80-115); Potassium 5.4 mmol/L (3.5-5.1); Sodium 137 mmol/L (136-145)
[2021-07-29 07:28] LABS: Actual Bicarbonate (HCO3a) 18.9 mEq/L (22-28); Base Excess (BEa) -12.8 mEq/L (-2.0 to +3.0); Calcium, Ionized (arterial) 1.08 mmol/L (1.12-1.30); Carboxyhemoglobin (COHb) 1.3 gm% (0.0-3.0); Hemoglobin (Hb) 10.9 g/dL (12.0-16.0); Potassium - ABG Lab 5.54 mmol/L (3.70-5.30)
[2021-07-29 07:30] LABS: CO2 Tension 77.2 mmHg (35.0-45.0); O2 Tension (PaO2), arterial 33.2 mmHg (> 80.0); pH, Arterial 7.01 (7.35-7.45)
[2021-07-29 07:32] LABS: Puncture Site RRA
[2021-07-29] MEDS: Cefepime 1 GM in Sodium Chloride 0.9% 100 ML IVPB SCH ×2 (08:13→21:18)
[2021-07-29] MEDS: Dexamethasone 4 mg/ml Vial SLOW IVP SCH ×2 (08:14→21:18)
[2021-07-29] MEDS: Micafungin 100 MG in Sodium Chloride 0.9% 100 ML IVPB SCH (08:21)
[2021-07-29] MEDS: Famotidine 20 MG TAB PO SCH ×2 (08:22→21:18)
[2021-07-29] MEDS: Zinc Sulfate 220 MG CAP PO SCH (08:22)
[2021-07-29] MEDS: Ascorbic Acid 500 mg Chewable Tablet PO SCH (08:25)
[2021-07-29] MEDS: Cholecalciferol 1,000 UNITS (25 MCG) TAB PO SCH (08:25)
[2021-07-29] MEDS: Enoxaparin Sodium 40 MG/0.4 ML SYRINGE SC SCH (08:26)
[2021-07-29] MEDS: VANCOMYCIN 2 GRAM/400 ML BAG 2 GM in Premix Bag 1 BAG IVPB SCH (09:35)
[2021-07-29 10:10] LABS: Vancomycin, Trough 55.1 ug/mL
[2021-07-29] MEDS ORDERED: Vancomycin HCl 750 MG in Premix Bag 1 BAG IVPB SCH (10:30)
[2021-07-29] MEDS ORDERED: Fentanyl CADD 100 ML IV SCH (11:00)
[2021-07-29] MEDS ORDERED: Lorazepam 2 MG/ML VIAL SLOW IVP PRN (11:00)
[2021-07-29] MEDS ORDERED: Morphine 2 MG/ML VIAL SLOW IVP PRN (11:00)
[2021-07-29] MEDS ORDERED: Fentanyl BOLUS 250 ML IVPB PRN (11:01)
[2021-07-29 11:19] LABS: Glucose 182 mg/dL (80-115)
[2021-07-29 12:17] VITALS: BMI 52.9
[2021-07-30] MEDS: Metoclopramide HCl 10 MG/2 ML VIAL IVP SCH (00:02)
== END 2021-07-30 00:05 | disposition expired | DRG 870 ==
LOC: ERS 23:12 → ERHOLD 07-04 01:53 → IMCU/EMU 07-04 18:33 → CCU 07-09 09:46
PROVIDERS: ADMIT Internal Medicine; ATTEND Family Medicine
PROC: 8E0ZXY6 Isolation (ICD-10-PCS; 2021-07-04)
PROC: XW033E5 Introduction of Remdesivir Anti-infective into Peripheral Vein, Percutaneous Approach, New Technology Group 5 (ICD-10-PCS; 2021-07-04)
PROC: 5A09557 Assistance with Respiratory Ventilation, Greater than 96 Consecutive Hours, Continuous Positive Airway Pressure (ICD-10-PCS; 2021-07-04)
PROC: 3E0333Z Introduction of Anti-inflammatory into Peripheral Vein, Percutaneous Approach (ICD-10-PCS; 2021-07-04)
PROC: 5A1955Z Respiratory Ventilation, Greater than 96 Consecutive Hours (ICD-10-PCS; principal; 2021-07-09)
PROC: 0BH17EZ Insertion of Endotracheal Airway into Trachea, Via Natural or Artificial Opening (ICD-10-PCS; 2021-07-09)
PROC: 3E033XZ Introduction of Vasopressor into Peripheral Vein, Percutaneous Approach (ICD-10-PCS; 2021-07-09)
PROC: XW0DXM6 Introduction of Baricitinib into Mouth and Pharynx, External Approach, New Technology Group 6 (ICD-10-PCS; 2021-07-09)
PROC: 0DH67UZ Insertion of Feeding Device into Stomach, Via Natural or Artificial Opening (ICD-10-PCS; 2021-07-11)
PROC: 02HV33Z Insertion of Infusion Device into Superior Vena Cava, Percutaneous Approach (ICD-10-PCS; 2021-07-20)
PROC: B548ZZA Ultrasonography of Superior Vena Cava, Guidance (ICD-10-PCS; 2021-07-20)
DX: A41.89 Other specified sepsis (principal); U07.1 COVID-19; J12.82 Pneumonia due to coronavirus disease 2019; J80 Acute respiratory distress syndrome; R65.21 Severe sepsis with septic shock; N17.9 Acute kidney failure, unspecified; I24.8 Other forms of acute ischemic heart disease; N39.0 Urinary tract infection, site not specified; Z68.43 Body mass index [BMI] 50.0-59.9, adult; Z66 Do not resuscitate; R74.8 Abnormal levels of other serum enzymes; E66.01 Morbid (severe) obesity due to excess calories; E87.5 Hyperkalemia; J04.10 Acute tracheitis without obstruction; E16.2 Hypoglycemia, unspecified; D69.6 Thrombocytopenia, unspecified; D64.9 Anemia, unspecified; R34 Anuria and oliguria; B96.5 Pseudomonas (aeruginosa) (mallei) (pseudomallei) as the cause of diseases classified elsewhere; Z90.49 Acquired absence of other specified parts of digestive tract; Z90.710 Acquired absence of both cervix and uterus; Z98.890 Other specified postprocedural states; Z78.1 Physical restraint status; Z79.899 Other long term (current) drug therapy
CPT/HCPCS: 36415; 36416; 36600; 71045; 71275; 74018; 80048; 80053; 80076; 80202; 81001; 82553; 82728; 82805; 83605; 83735; 84100; 84145; 84484; 85025; 85379; 86140; 87040; 87070; 87077; 87186; 87205; 93005; 94002; 94003; 94660; 96365; 96366; 96368; 96372; 96375; J0456; J0692; J0696; J1100; J1650; J1815; J1940; J2060; J2248; J2270; J2704; J2765; J3010; J3370; J3480; J3490; J7050; J7120; Q9967